=== PATIENT | female | born 2000 | race Caucasian/White ===

== ENCOUNTER 2020-07-10 19:12 | Outpatient (REF) | payer OTHER, SELFPAY ==
--- NOTE | 2020-07-10 | MR_ITS ---
EXAMINATION: MR BRAIN WITHOUT CONTRAST CLINICAL INFORMATION: Concussion. Loss of consciousness. COMPARISON: Head CT from 04/16/2020. TECHNIQUE: MRI of the brain was obtained using routine sequences without contrast. FINDINGS: No focal restricted diffusion is demonstrated to suggest acute or subacute cerebral ischemia. No evidence of acute or chronic hemorrhagic products on heme-sensitive imaging. Normal parenchymal signal characteristics. The ventricles are normal in morphology and size. No abnormal mass effect. No midline shift. Normal appearance of the pituitary gland. No abnormalities of the posterior fossa with normal appearance of the brainstem and cerebellum. The cerebellar tonsils are positioned at the level of foramen magnum. Normal arterial and venous vascular flow voids are present. Normal, homogeneous marrow signal. Mild mucosal thickening of the paranasal sinuses. No signal abnormalities within the mastoids. IMPRESSION: 1. No acute intracranial abnormalities. 2. No MRI abnormalities to correlate with the patient's symptoms.
== END 2020-07-10 19:13 | disposition home or self-care (01) ==
LOC: HO.MRI 19:12
PROVIDERS: PCP Internal Medicine; Visit Provider Internal Medicine
DX: S06.0X0A Concussion without loss of consciousness, initial encounter (principal); X58.XXXA Exposure to other specified factors, initial encounter; Y93.9 Activity, unspecified; Y92.9 Unspecified place or not applicable; Y99.9 Unspecified external cause status
CPT/HCPCS: 70551

== ENCOUNTER 2020-07-13 15:28 | Outpatient (REF) | payer OTHER, SELFPAY ==
[2020-07-13 16:18] LABS: COVID-19 Test Negative (Negative)
== END 2020-07-13 15:29 | disposition home or self-care (01) ==
LOC: HO.LAB 15:28
PROVIDERS: PCP Internal Medicine; Visit Provider Internal Medicine
DX: Z20.828 Contact with and (suspected) exposure to other viral communicable diseases (principal)
CPT/HCPCS: 36415

== ENCOUNTER 2020-07-31 08:48 | Outpatient (REF) | payer OTHER, SELFPAY ==
[2020-07-31 09:48] LABS: MANUAL DIFF FLAG NO
[2020-07-31 09:49] LABS: Basophils Percent Auto 0.3 % (0-2); Eosinophils Absolute Auto 0.1 X10*3/uL (0.0-0.4); Eosinophils Percent Auto 1.6 % (0-4); Hematocrit 41.2 % (37-47); Hemoglobin 13.3 g/dl (12.0-16.0); Imm Gran Abs Auto 0.01 X10*3/uL (0.00-0.03); Imm Gran Pct Auto 0.2 % (0.0-0.4); Lymphocytes Absolute Auto 1.7 X10*3/uL (1.2-4.9); Lymphocytes Percent Auto 26.6 % (20-40); Mean Corpuscular HGB Conc 32.3 g/dl (31.0-35.0); Mean Corpuscular Hemoglobin 28.2 pg (27.0-33.0); Mean Corpuscular Volume 87.3 fL (80-98); Mean Platelet Volume 11.7 fL (9.4-12.3); Monocytes Absolute Auto 0.5 X10*3/uL (0.1-1.2); Monocytes Percent Auto 7.4 % (2-11); Neutrophils Percent Auto 63.9 % (45-73); Platelet Count 197 X10*3/uL (160-400); Red Blood Count 4.72 X10*6/uL (4.20-5.50); Red Cell Distribution Width 12.7 % (11.0-16.0); White Blood Count 6.3 X10*3/uL (4.8-10.8)
[2020-07-31 10:16] LABS: Alanine Aminotransferase 16 U/L (0-31); Albumin Level 4.3 g/dL (3.5-5.0); Alkaline Phosphatase 77 U/L (39-117); Anion Gap 12 (12-20); Aspartate Amino Transferase 21 U/L (5-31); Bilirubin Total 0.2 mg/dL (0.0-1.0); Blood Urea Nitrogen 17 mg/dL (9-16); Carbon Dioxide 25 mmol/L (22-29); Chloride 107 mmol/L (96-108); Cholesterol 155 mg/dL; Estimated Glomerular Filt Rate > 60; Glucose Fasting 89 mg/dL (60-99); HDL Cholesterol 46 mg/dL; Iron 32 mcg/dL (30-160); LDL Cholesterol Calculated 99 mg/dl; Percent Iron Saturation 9 % (15-50); Potassium 4.3 mmol/l (3.3-5.1); Sodium 140 mmol/L (135-145); Total Iron Binding Capacity 346 mcg/dL (228-428); Total Protein 7.4 g/dL (6.5-8.0); Triglycerides 52 mg/dL; Unsaturated Iron Binding 314 ug/dL
[2020-07-31 10:33] LABS: HIV AB/AG Nonreactive (Nonreactive); HIV Num 1 0.08 S/CO (0.00-0.99)
[2020-07-31 10:38] LABS: Ferritin 2 ng/mL (10-122)
== END 2020-07-31 08:49 | disposition home or self-care (01) ==
LOC: HO.LAB 08:48
PROVIDERS: Absent Provider Nurse Practitioner Women's Health; PCP Internal Medicine; Visit Provider Internal Medicine
DX: E66.09 Other obesity due to excess calories (principal); D50.0 Iron deficiency anemia secondary to blood loss (chronic); Z11.3 Encounter for screening for infections with a predominantly sexual mode of transmission
CPT/HCPCS: 36415; 80053; 80061; 82728; 83540; 84443; 85025; 87389

== ENCOUNTER 2021-02-03 13:37 | Outpatient (REF) | payer OTHER, SELFPAY ==
[2021-02-03 14:07] LABS: COVID-19 Test Negative (Negative)
== END 2021-02-03 13:38 | disposition home or self-care (01) ==
LOC: HO.EMPCOV 13:37
PROVIDERS: Visit Provider Internal Medicine
DX: Z20.822 Contact with and (suspected) exposure to COVID-19 (principal)
CPT/HCPCS: 36415; 87635; C9803

== ENCOUNTER 2021-05-29 08:37 | Outpatient (REF) | payer OTHER, SELFPAY ==
[2021-05-29 10:13] LABS: MANUAL DIFF FLAG NO
[2021-05-29 10:14] LABS: Basophils Percent Auto 0.4 % (0-2); Eosinophils Absolute Auto 0.1 X10*3/uL (0.0-0.4); Eosinophils Percent Auto 1.9 % (0-4); Hemoglobin 12.9 g/dl (12.0-16.0); Imm Gran Abs Auto 0.01 X10*3/uL (0.00-0.03); Imm Gran Pct Auto 0.1 % (0.0-0.4); Lymphocytes Absolute Auto 1.9 X10*3/uL (1.2-4.9); Lymphocytes Percent Auto 28.2 % (20-40); Mean Corpuscular HGB Conc 32.3 g/dl (31.0-35.0); Mean Corpuscular Hemoglobin 27.4 pg (27.0-33.0); Mean Corpuscular Volume 84.9 fL (80-98); Mean Platelet Volume 11.8 fL (9.4-12.3); Monocytes Absolute Auto 0.5 X10*3/uL (0.1-1.2); Monocytes Percent Auto 7.6 % (2-11); Neutrophils Absolute Auto 4.2 X10*3/uL (2.0-8.3); Neutrophils Percent Auto 61.8 % (45-73); Platelet Count 221 X10*3/uL (160-400); Red Blood Count 4.71 X10*6/uL (4.20-5.50); Red Cell Distribution Width 13.4 % (11.0-16.0); White Blood Count 6.8 X10*3/uL (4.8-10.8)
[2021-05-29 10:49] LABS: Alanine Aminotransferase 14 U/L (0-31); Albumin Level 4.2 g/dL (3.5-5.0); Alkaline Phosphatase 80 U/L (39-117); Anion Gap 13 (12-20); Aspartate Amino Transferase 17 U/L (5-31); Bilirubin Total 0.4 mg/dL (0.0-1.0); Blood Urea Nitrogen 12 mg/dL (9-16); Calcium 9.4 mg/dL (8.4-10.2); Carbon Dioxide 23 mmol/L (22-29); Chloride 108 mmol/L (96-108); Cholesterol 167 mg/dL; Estimated Glomerular Filt Rate > 60; Glucose Fasting 92 mg/dL (60-99); HDL Cholesterol 49 mg/dL; LDL Cholesterol Calculated 97 mg/dl; Potassium 4.5 mmol/L (3.3-5.1); Sodium 139 mmol/L (135-145); Total Protein 7.5 g/dL (6.5-8.0); Triglycerides 108 mg/dL
[2021-05-30 03:37] LABS: SARS COV2 IgG Negative (Negative)
[2021-06-03 11:30] LABS: Vitamin D 25-OH, D2 <4 ng/mL; Vitamin D 25-OH, D3 19 ng/mL; Vitamin D 25-OH, Total 19 ng/mL (30-100)
== END 2021-05-29 08:38 | disposition home or self-care (01) ==
LOC: HO.LAB 08:37
PROVIDERS: PCP Internal Medicine; Visit Provider Internal Medicine
DX: D64.9 Anemia, unspecified (principal); R07.9 Chest pain, unspecified; E55.9 Vitamin D deficiency, unspecified; Z01.84 Encounter for antibody response examination; Z86.16 Personal history of COVID-19
CPT/HCPCS: 36415; 80053; 80061; 82306; 85025; 86769

== ENCOUNTER 2021-07-01 13:27 | Outpatient (REF) | payer OTHER, SELFPAY ==
[2021-07-01 15:15] LABS: Appearance Urine CLEAR; Color Urine STRAW; Glucose Urine UA NEG (NEG); Leukocyte Esterase Urine 1+ (NEG); Nitrite Urine NEG (NEG); Specific Gravity - Urine <= 1.005 (1.005-1.025); UACC Culture Trigger YES; Urine Blood NEG (NEG); Urine Ketones NEG (NEG); Urine Protein NEG (NEG-TRACE)
[2021-07-01 16:42] LABS: Bacteria Urine 1+ /LPF; RBC Urine 0 /HPF (0); Squamous Epithelial Cell Urine 1+ /LPF
== END 2021-07-01 13:28 | disposition home or self-care (01) ==
LOC: HO.LAB 13:27
PROVIDERS: PCP Internal Medicine; Visit Provider Internal Medicine
DX: R30.0 Dysuria (principal)
CPT/HCPCS: 81001; 81003; 87086

== ENCOUNTER 2021-11-04 08:16 | Outpatient (REF) | payer OTHER, SELFPAY | END 2021-11-04 08:17 | disposition home or self-care (01) | LOC: HO.LNP 08:16 | PROVIDERS: Visit Provider Ophthalmology Glaucoma Specialist | DX: H10.409 Unspecified chronic conjunctivitis, unspecified eye (principal) | CPT/HCPCS: 87070; 87147; 87186; 87205 ==

== ENCOUNTER → 2021-12-14 08:12 | Outpatient (REF) | payer OTHER, SELFPAY ==
--- NOTE | 2021-12-14 08:17 | ECG_ITS ---
Test Reason : CP Blood Pressure : / mmHG Vent. Rate : 099 BPM Atrial Rate : 099 BPM P-R Int : 146 ms QRS Dur : 078 ms QT Int : 346 ms P-R-T Axes : 063 078 052 degrees QTc Int : 444 ms Normal sinus rhythm Normal ECG When compared with ECG of 24-JUL-2016 18:58, No significant change was found Referred By: Rosalie Echevarria Electronically Signed By:DANIEL SHABAZZ MD
[2021-12-14 08:23] LABS: MANUAL DIFF FLAG NO
[2021-12-14 08:33] LABS: Basophils Percent Auto 0.4 % (0-2); Eosinophils Absolute Auto 0.2 X10*3/uL (0.0-0.4); Eosinophils Percent Auto 3.2 % (0-4); Hematocrit 40.2 % (37.0-47.0); Hemoglobin 12.7 g/dl (12.0-16.0); Imm Gran Abs Auto 0.01 X10*3/uL (0.00-0.03); Imm Gran Pct Auto 0.1 % (0.0-0.4); Lymphocytes Absolute Auto 1.8 X10*3/uL (1.2-4.9); Lymphocytes Percent Auto 25.2 % (20-40); Mean Corpuscular HGB Conc 31.6 g/dl (31.0-35.0); Mean Corpuscular Volume 82.2 fL (80.0-98.0); Mean Platelet Volume 11.5 fL (9.4-12.3); Monocytes Absolute Auto 0.6 X10*3/uL (0.1-1.2); Monocytes Percent Auto 8.4 % (2-11); Neutrophils Absolute Auto 4.6 x10*3/uL (2.0-8.3); Neutrophils Percent Auto 62.7 % (45-73); Platelet Count 228 X10*3/uL (160-400); Red Blood Count 4.89 X10*6/uL (4.20-5.50); Red Cell Distribution Width 14.4 % (11.0-16.0); White Blood Count 7.3 X10*3/uL (4.8-10.8)
[2021-12-14 09:07] LABS: Alanine Aminotransferase 20 U/L (0-31); Albumin Level 3.9 g/dL (3.5-5.0); Alkaline Phosphatase 72 U/L (39-117); Anion Gap 11 (12-20); Aspartate Amino Transferase 21 U/L (5-31); Bilirubin Total 0.6 mg/dL (0.0-1.0); Blood Urea Nitrogen 9 mg/dL (9-16); Calcium 9.2 mg/dL (8.4-10.2); Carbon Dioxide 22 mmol/L (22-29); Chloride 110 mmol/L (96-108); Cholesterol 151 mg/dL; Estimated Glomerular Filt Rate > 60; Glucose Fasting 100 mg/dL (60-99); HDL Cholesterol 42 mg/dL; LDL Cholesterol Calculated 85 mg/dl; Sodium 139 mmol/L (135-145); Total Protein 7.1 g/dL (6.5-8.0); Triglycerides 120 mg/dL
[2021-12-14 09:30] LABS: Thyroid Stimulating Hormone 1.25 uIU/mL (0.32-4.0)
[2021-12-18 13:41] LABS: Vitamin D 25-OH, D2 <4 ng/mL; Vitamin D 25-OH, D3 18 ng/mL; Vitamin D 25-OH, Total 18 ng/mL (30-100)
== END ==
LOC: HO.CARD 08:12
PROVIDERS: PCP Internal Medicine; Visit Provider Internal Medicine
DX: Z00.00 Encounter for general adult medical examination without abnormal findings (principal); R07.9 Chest pain, unspecified; D64.9 Anemia, unspecified; E66.9 Obesity, unspecified; E78.5 Hyperlipidemia, unspecified; E55.9 Vitamin D deficiency, unspecified
CPT/HCPCS: 36415; 80053; 80061; 82306; 84443; 85025; 93005

== ENCOUNTER → 2022-01-11 13:03 | Outpatient (BNVA) | payer OTHER, SELFPAY | PROVIDERS: Visit Provider Advanced Practice Midwife | DX: Z32.01 Encounter for pregnancy test, result positive (principal); N92.6 Irregular menstruation, unspecified | CPT/HCPCS: 81025 ==

== ENCOUNTER 2022-01-26 08:18 | Outpatient (REF) | payer OTHER, SELFPAY | END 2022-01-26 08:19 | disposition home or self-care (01) | LOC: HO.LAB 08:18 | PROVIDERS: PCP Internal Medicine; Visit Provider Advanced Practice Midwife | DX: O23.40 Unspecified infection of urinary tract in pregnancy, unspecified trimester (principal); N39.0 Urinary tract infection, site not specified | CPT/HCPCS: 81003; 87086 ==

== ENCOUNTER 2022-01-28 08:50 | Outpatient (REF) | payer OTHER, SELFPAY ==
--- NOTE | ~2022-01-28 | US_ITS ---
EXAMINATION: OBSTETRICAL ULTRASOUND, FIRST TRIMESTER HISTORY: 21-year-old at 9.3 weeks of gestation Low back pain Inability to detect heart tone LMP: 11/23/2021 COMPARISON: None TECHNIQUE: Real time transabdominal imaging with color and M-mode Doppler. FINDINGS: A single, live IUP CRL of 29.7 mm c/w 9.6wks is noted. Heart Rate: 172 beats per minute. Both maternal ovaries are seen and appear normal. GESTATIONAL AGE: 1. GA from LMP: 9.3 wks 2. GA from AUA: 9.6 wks ESTIMATED DATE OF DELIVERY: 1. JERRI from LMP: 08/30/2022 2. JERRI from AUA: 08/27/2022 US/US OB <= 14 weeks fetus IMPRESSION: 1. A single live IUP 2. Size equals dates 3. Normal ovaries Thank you very much for this referral. This note was generated with a voice recognition program. Please excuse any errors which may have been overlooked during my review of this note. Sometimes these errors may affect the content or meaning of a given sentence.
== END 2022-01-28 08:51 | disposition home or self-care (01) ==
LOC: HO.US 08:50
PROVIDERS: Visit Provider Advanced Practice Midwife
DX: O36.80X0 Pregnancy with inconclusive fetal viability, not applicable or unspecified (principal); O26.891 Other specified pregnancy related conditions, first trimester; M54.50 Low back pain, unspecified; O99.211 Obesity complicating pregnancy, first trimester; E66.9 Obesity, unspecified; Z3A.09 9 weeks gestation of pregnancy
CPT/HCPCS: 76801

== ENCOUNTER → 2022-02-15 13:37 | Outpatient (BNVA) | payer OTHER, SELFPAY | PROVIDERS: PCP Internal Medicine; Visit Provider Advanced Practice Midwife | DX: O99.211 Obesity complicating pregnancy, first trimester (principal); E66.9 Obesity, unspecified; Z3A.12 12 weeks gestation of pregnancy | CPT/HCPCS: 99212 ==

== ENCOUNTER 2022-02-18 08:44 | Outpatient (REF) | payer OTHER, SELFPAY ==
--- NOTE | ~2022-02-18 | US_ITS ---
EXAMINATION: OBSTETRICAL ULTRASOUND, FIRST TRIMESTER HISTORY: 21-year-old at the 12.3 weeks of gestation NT screening COMPARISON: 01/28/2022 TECHNIQUE: Real time transabdominal imaging with color and M-mode Doppler. FINDINGS: A single, live IUP CRL of 66.2 mm c/w 13.0wks is noted. Heart Rate: 174 beats per minute. Normal yolk sac seen. NT was 2.3.mm. NB Present. The NT measurement varied between 2.95 and 1.7 mm depending on the position of the neck. The largest measurement was taken with the neck in the extended position. The best measurement was 2.3 mm which is within normal limits. The embryo appears sonographically wnl for this GA. Both maternal ovaries are seen and appear normal. GESTATIONAL AGE: 1. Established GA: 12.3 wks 2. GA from A: 13.0 wks ESTIMATED DATE OF DELIVERY: 1. Established JERRI: 08/30/2022 2. JERRI from [facility]: 08/26/2022 US/US OB 1T nuc measure IMPRESSION: 1. A single live IUP 2. Size equals dates 3. NT of 2.3 mm MFM Consultation: I reviewed the ultrasound findings along with significance of NT measurement. The NT of less than 3mm is generally reassuring. However, the sensitivity for T21 detection is only 60%. I reviewed the availability of serum aneuploidy screening which includes cell-free DNA and placental protein based tests. I discussed the sensitivity, false-positive rate, and other limitations associated with each test. I also reviewed the availability of invasive diagnostic tests that are associated small but definite risk of miscarriage. We also reviewed the differences between screening tests and diagnostic tests. After our discussion, she opted for the First trimester screening that is based on cell-free DNA or non-invasive testing (NIPT). The result will be faxed to your office in approximately 7 days. A follow up at 18 weeks for survey has been scheduled. Thank you very much for this referral. Total time 30 minutes. The time spent was devoted to counseling the patient about the disease and diagnosis, coordinating care including reviewing her records, pertinent lab data and studies, as well as discussing diagnostic evaluation and workup, plan therapeutic interventions and future disposition of care. This includes any additional research needed to obtain further information in formulating the plan of care of this patient. This note was generated with a voice recognition program. Please excuse any errors which may have been overlooked during my review of this note. Sometimes these errors may affect the content or meaning of a given sentence.
== END 2022-02-18 08:45 | disposition home or self-care (01) ==
LOC: HO.US 08:44
PROVIDERS: Visit Provider Advanced Practice Midwife
DX: Z34.91 Encounter for supervision of normal pregnancy, unspecified, first trimester (principal); Z3A.13 13 weeks gestation of pregnancy
CPT/HCPCS: 76813

== ENCOUNTER 2022-02-25 14:14 | Outpatient (REF) | payer OTHER, SELFPAY ==
[2022-02-26 13:52] LABS: BV Int Neg Control Negative (Negative); BV Int Pos Control Positive (Positive)
[2022-02-26 16:55] LABS: CT PCR NOT DETECTED (Not Detect.); NG PCR NOT DETECTED (Not Detect.)
== END 2022-02-25 14:15 | disposition home or self-care (01) ==
LOC: HO.LAB 14:14
PROVIDERS: PCP Internal Medicine; Visit Provider Advanced Practice Midwife
DX: O99.211 Obesity complicating pregnancy, first trimester (principal); E66.9 Obesity, unspecified; O26.891 Other specified pregnancy related conditions, first trimester; L30.9 Dermatitis, unspecified; Z3A.13 13 weeks gestation of pregnancy
CPT/HCPCS: 87480; 87491; 87510; 87591; 87660; 99212

== ENCOUNTER 2022-02-28 16:28 | Outpatient (REF) | payer OTHER, SELFPAY ==
[2022-02-28 17:45] LABS: Hematocrit 36.5 % (37.0-47.0); Hemoglobin 12.1 g/dl (12.0-16.0); Mean Corpuscular HGB Conc 33.2 g/dl (31.0-35.0); Mean Corpuscular Hemoglobin 26.9 pg (27.0-33.0); Mean Corpuscular Volume 81.3 fL (80.0-98.0); Mean Platelet Volume 11.3 fL (9.4-12.3); Platelet Count 212 X10*3/uL (160-400); Red Blood Count 4.49 X10*6/uL (4.20-5.50); Red Cell Distribution Width 14.2 % (11.0-16.0); White Blood Count 10.3 X10*3/uL (4.8-10.8)
[2022-02-28 18:02] LABS: Amphetamine Screen Urine Not Detected (Not Detect); Barbiturates, Urine Not Detected (Not Detect); Benzodiazepines Screen Urine Not Detected (Not Detect); Cannabinoid Screen Urine Not Detected (Not Detect); Cocaine Screen Urine Not Detected (Not Detect); Fentanyl, urine Not Detected (Not Detect); Opiate Screen Urine Not Detected (Not Detect); Phencyclidine Screen Urine Not Detected (Not Detect)
[2022-02-28 18:02] LABS: Alanine Aminotransferase 20 U/L (0-31); Aspartate Amino Transferase 17 U/L (5-31); Blood Urea Nitrogen 10 mg/dL (9-16); Estimated Glomerular Filt Rate > 60; Uric Acid 3.6 mg/dL (2.4-5.7)
[2022-02-28 18:08] LABS: Creatinine Urine 48.56 mg/dL; Total Protein Urine Random < 7 mg/dL (<12)
[2022-02-28 18:48] LABS: Syphilis Screen Nonreactive (Nonreactive)
[2022-03-01 04:55] LABS: HBsAGNum1 0.25 S/CO (0.00-0.99); HIV AB/AG Nonreactive (Nonreactive); HIV Num 1 0.08 S/CO (0.00-0.99); Hepatitis B Surface Antigen Negative (Negative); ~HepC Num1 0.08 S/CO (0.00-0.79); ~Hepatitis C Antibody Nonreactive (Nonreactive)
[2022-03-01 17:22] LABS: Rubella IgG Antibody 1.51 Index
== END 2022-02-28 16:29 | disposition home or self-care (01) ==
LOC: HO.LAB 16:28
PROVIDERS: PCP Internal Medicine; Visit Provider Advanced Practice Midwife
DX: Z11.4 Encounter for screening for human immunodeficiency virus [HIV] (principal); O99.210 Obesity complicating pregnancy, unspecified trimester; E66.9 Obesity, unspecified
CPT/HCPCS: 80307; 82565; 84156; 84450; 84460; 84520; 84550; 85027; 86762; 86780; 86787; 86803; 86850; 86900; 86901; 87086; 87340; 87389

== ENCOUNTER 2022-03-14 13:15 | Emergency (ER) | payer OTHER, SELFPAY ==
--- NOTE | ~2022-03-14 | XR_ITS ---
EXAMINATION: PORTABLE CHEST 1 VIEW CLINICAL INFORMATION: sob/chest pain 16 week . COMPARISON: No recent pertinent prior studies are available for comparison. TECHNIQUE: Portable frontal view of the chest was obtained. FINDINGS: The lungs are well expanded. No focal infiltrate, effusion, edema, or pneumothorax. Cardiac and mediastinal silhouettes are within normal limits for technique. No acute bony abnormality seen. XR/XR chest 1V IMPRESSION: No evidence of acute disease.
--- NOTE | ~2022-03-14 | NM_ITS ---
EXAMINATION: PULMONARY PERFUSION STUDY CLINICAL INFORMATION: Shortness of breath and chest pain, elevated d-dimer. The patient is 16 weeks and informed written consent was obtained from the patient prior to performing this procedure. COMPARISON: No previous lung scan is available for comparison. TECHNIQUE: Following the intravenous injection of 0.5 mCi Tc-99m MAA, the lungs were imaged in the anterior and posterior, left and right lateral and JAPANESE, CABRERA, LPO, and RPO projections using a gamma scintillation camera. This markedly reduced radiopharmaceutical dose was used because of the patient's state. FINDINGS: No segmental perfusion defects are present. There is homogeneous distribution of activity bilaterally. There are no focal anatomic appearing perfusion defects present. NM/NM pul perfusion IMPRESSION: Normal radionuclide lung perfusion scan.
[2022-03-14 13:31] VITALS: BP 162/87; PULSE 88; RESP 20; TEMP 36.8; O2SAT 99; BMI 36.6
[2022-03-14 14:10] LABS: COVID-19 Test Negative (Negative); IDNOW Serial# 16C4AD1C
--- NOTE | 2022-03-14 14:40 | ECG_ITS ---
Test Reason : CHEST PRESSURE Blood Pressure : / mmHG Vent. Rate : 087 BPM Atrial Rate : 087 BPM P-R Int : 142 ms QRS Dur : 084 ms QT Int : 354 ms P-R-T Axes : 059 064 050 degrees QTc Int : 425 ms Normal sinus rhythm Normal ECG When compared with ECG of 14-DEC-2021 08:32, No significant change was found Referred By: Vera Iglesias Electronically Signed By:BRANDI RIOJAS
[2022-03-14 14:50] VITALS: BP 115/72; PULSE 91; RESP 16; O2SAT 99
[2022-03-14 15:01] LABS: MANUAL DIFF FLAG NO
[2022-03-14 15:07] LABS: Basophils Percent Auto 0.4 % (0-2); Eosinophils Absolute Auto 0.3 X10*3/uL (0.0-0.4); Hematocrit 37.3 % (37.0-47.0); Hemoglobin 12.4 g/dl (12.0-16.0); Imm Gran Abs Auto 0.04 X10*3/uL (0.00-0.03); Imm Gran Pct Auto 0.4 % (0.0-0.4); Lymphocytes Absolute Auto 1.5 X10*3/uL (1.2-4.9); Lymphocytes Percent Auto 13.2 % (20-40); Mean Corpuscular HGB Conc 33.2 g/dl (31.0-35.0); Mean Corpuscular Volume 81.3 fL (80.0-98.0); Mean Platelet Volume 11.3 fL (9.4-12.3); Monocytes Absolute Auto 0.9 X10*3/uL (0.1-1.2); Monocytes Percent Auto 8.3 % (2-11); Neutrophils Absolute Auto 8.4 x10*3/uL (2.0-8.3); Neutrophils Percent Auto 74.7 % (45-73); Platelet Count 218 X10*3/uL (160-400); Prothrombin Time 11.7 SEC (9.9-13.0); Red Blood Count 4.59 X10*6/uL (4.20-5.50); Red Cell Distribution Width 14.4 % (11.0-16.0); White Blood Count 11.3 X10*3/uL (4.8-10.8)
[2022-03-14 15:09] LABS: D Dimer High Sensitivity 735 NG/ML
[2022-03-14 15:30] LABS: Alanine Aminotransferase 40 U/L (0-31); Albumin Level 3.5 g/dL (3.5-5.0); Alkaline Phosphatase 65 U/L (39-117); Anion Gap 12 (12-20); Aspartate Amino Transferase 23 U/L (5-31); Bilirubin Total 0.2 mg/dL (0.0-1.0); Blood Urea Nitrogen 7 mg/dL (9-16); Calcium 8.9 mg/dL (8.4-10.2); Carbon Dioxide 21 mmol/L (22-29); Chloride 108 mmol/L (96-108); Creatinine Clr Calc Pharmacy 148.8; Estimated Glomerular Filt Rate > 60; Glucose Random 88 mg/dL (60-115); Potassium 3.9 mmol/L (3.3-5.1); Sodium 137 mmol/L (135-145); Total Protein 6.6 g/dL (6.5-8.0)
[2022-03-14 15:34] LABS: Troponin-I High Sensitivity < 3.5 ng/L (<3.5-17.0)
--- NOTE | 2022-03-14 16:08 | ED.GENADULT ---
HPI - General Adult General Chief complaint: General Medical Stated complaint: INTERMITTENT CHEST PAIN Time Seen by Provider: 03/14/22 14:29 Related Data Previous Rx's Medication Instructions Recorded prenat.vits,marleny,gpp-[id number] 1 tab PO DAILY #100 tab 01/11/22 aspirin 81 mg tablet,delayed 162 mg PO DAILY #300 tab 02/25/22 release (Adult Aspirin Regimen) Allergies Allergy/AdvReac Type Severity Reaction Status Date / Time Sulfa (Sulfonamide Allergy Intermediate rash Verified 02/25/22 14:47 Antibiotics) FOR[facility]LY [facility], [facility] Past Medical History Medical History (Updated 02/25/22 @ 16:34 by Beatriz Clifford CNM) Anemia Chest pain Constipation by delayed colonic transit COVID-19 Encounter for physical examination Eye abnormality Lower back pain Migraine Missed period Nausea Obesity (BMI 35.0-39.9 without comorbidity) Surgical History (Updated 02/15/22 @ 15:02 by Tanya Carlton LPN) Lynn teeth removed Family History Family History Father Hypertension Mother History of pre-eclampsia Maternal Grandmother Diabetes Paternal Grandmother Hypertension Brother No problems noted. Social History Social History (Updated 02/15/22 @ 14:42 by Tanya Carlton LPN) Household Members: Significant Other and Family Housing: House Are you a primary critical care educator to a significant other at home: No Do you presently have visiting nurse or other home services: No Alcohol intake: never Patient Tobacco Use Status: Never used Tobacco e-Cigarette/Vaping Use: Never Used Second Hand Smoke Exposure: No Special mercy needs: No Agree to transfusion: Yes Advance Directives: No Advance Directives Information Provided: No service: No Current occupational status: employed Current occupational exposures/hazards: No Physical Exam ED Vital Signs: Vital Signs - 24 hr 03/14/22 13:31 03/14/22 14:50 Temperature 98.3 F Pulse Rate 88 91 Respiratory Rate 20 16 Blood Pressure 162/87 H 115/72 Pulse Oximetry 99 99 BMI result Body Mass Index 36.6 Medical Decision Making Lab Data Result diagrams: 03/14/22 14:54 03/14/22 14:54 Labs: Lab Results 03/14/22 03/14/22 03/14/22 Range/Units 13:33 14:54 14:54 WBC 11.3 H (4.8-10.8) X10*3/uL RBC 4.59 (4.20-5.50) X10*6/uL Hgb 12.4 (12.0-16.0) g/dl Hct 37.3 (37.0-47.0) % MCV 81.3 (80.0-98.0) fL MCH 27.0 (27.0-33.0) pg MCHC 33.2 (31.0-35.0) g/dl RDW 14.4 (11.0-16.0) % Plt Count 218 (160-400) X10*3/uL MPV 11.3 (9.4-12.3) fL Immature Gran % (Auto) 0.4 (0.0-0.4) % Neut % (Auto) 74.7 H (45-73) % Lymph % (Auto) 13.2 L (20-40) % Gillespie % (Auto) 8.3 (2-11) % Eos % (Auto) 3.0 (0-4) % Baso % (Auto) 0.4 (0-2) % Lymph # (Auto) 1.5 (1.2-4.9) X10*3/uL Gillespie # (Auto) 0.9 (0.1-1.2) X10*3/uL Eos # (Auto) 0.3 (0.0-0.4) X10*3/uL Baso # (Auto) 0.0 (0.0-0.2) X10*3/uL Abs Immat Gran (auto) 0.04 H (0.00-0.03) X10*3/uL Absolute Neuts (auto) 8.4 H (2.0-8.3) x10*3/uL Absolute Nucleated RBC 0.000 (0.0-0.012) X10*3/uL Nucleated RBC % (auto) 0.0 (0.0-0.2) /100WBC PT 11.7 (9.9-13.0) SEC INR 1.0 (0.9-1.1) D-Dimer High Sensitivty 735 NG/ML Sodium (135-145) mmol/L Potassium (3.3-5.1) mmol/L Chloride (96-108) mmol/L Carbon Dioxide (22-29) mmol/L Anion Gap (12-20) BUN (9-16) mg/dL Creatinine (0.5-1.4) mg/dL Estim Creat Clear Calc Estimated GFR Random Glucose (60-115) mg/dL Calcium (8.4-10.2) mg/dL Magnesium (1.6-2.6) mg/dL Total Bilirubin (0.0-1.0) mg/dL AST (5-31) U/L ALT (0-31) U/L Alkaline Phosphatase (39-117) U/L Troponin I High Sens (<3.5-17.0) ng/L Total Protein (6.5-8.0) g/dL Albumin (3.5-5.0) g/dL COVID-19 ([facility]) Negative (Negative) COVID-19 Clin Com See Note 03/14/22 03/14/22 Range/Units 14:54 14:54 WBC (4.8-10.8) X10*3/uL RBC (4.20-5.50) X10*6/uL Hgb (12.0-16.0) g/dl Hct (37.0-47.0) % MCV (80.0-98.0) fL MCH (27.0-33.0) pg MCHC (31.0-35.0) g/dl RDW (11.0-16.0) % Plt Count (160-400) X10*3/uL MPV (9.4-12.3) fL Immature Gran % (Auto) (0.0-0.4) % Neut % (Auto) (45-73) % Lymph % (Auto) (20-40) % Gillespie % (Auto) (2-11) % Eos % (Auto) (0-4) % Baso % (Auto) (0-2) % Lymph # (Auto) (1.2-4.9) X10*3/uL Gillespie # (Auto) (0.1-1.2) X10*3/uL Eos # (Auto) (0.0-0.4) X10*3/uL Baso # (Auto) (0.0-0.2) X10*3/uL Abs Immat Gran (auto) (0.00-0.03) X10*3/uL Absolute Neuts (auto) (2.0-8.3) x10*3/uL Absolute Nucleated RBC (0.0-0.012) X10*3/uL Nucleated RBC % (auto) (0.0-0.2) /100WBC PT (9.9-13.0) SEC INR (0.9-1.1) D-Dimer High Sensitivty NG/ML Sodium 137 (135-145) mmol/L Potassium 3.9 (3.3-5.1) mmol/L Chloride 108 (96-108) mmol/L Carbon Dioxide 21 L (22-29) mmol/L Anion Gap 12 (12-20) BUN 7 L (9-16) mg/dL Creatinine 0.64 (0.5-1.4) mg/dL Estim Creat Clear Calc 148.8 Estimated GFR > 60 Random Glucose 88 (60-115) mg/dL Calcium 8.9 (8.4-10.2) mg/dL Magnesium 2.0 (1.6-2.6) mg/dL Total Bilirubin 0.2 (0.0-1.0) mg/dL AST 23 (5-31) U/L ALT 40 H (0-31) U/L Alkaline Phosphatase 65 (39-117) U/L Troponin I High Sens < 3.5 (<3.5-17.0) ng/L Total Protein 6.6 (6.5-8.0) g/dL Albumin 3.5 (3.5-5.0) g/dL COVID-19 ([facility]) (Negative) COVID-19 Clin Com Discharge Plan Discharge Prescriptions: No Action prenat.vits,marleny,[id number] Tablet 1 tab PO DAILY Qty: 100 3RF aspirin [Adult Aspirin Regimen] 81 mg tablet,delayed release (DR/EC) 162 mg PO DAILY Qty: 300 1RF
--- NOTE | 2022-03-14 16:44 | ED_ITS ---
HPI - Chest Pain General Chief Complaint: General Medical Stated Complaint: INTERMITTENT CHEST PAIN Time Seen by Provider: 03/14/22 14:29 Source: patient and family ( mother at bedside) Mode of arrival: ambulatory Limitations: no limitations History of Present Illness HPI narrative: 21-year-old female with a past medical history of anemia, COVID-19, constipation, migraine headaches, obesity who is currently [id number] 16 weeks being followed by Beatriz GoldsteinBrien here [facility] due date of 08/30/22 presenting to the ED with complaints of midsternal chest pain radiating to her left shoulder with left hand numbness/ tingling sensation/shortness of breath for the past 2-3 days. although she reports that her was recently positive for COVID and she wants to rule it out as well. Although she denies a cough. Reports that she does not have any fevers, chills, dizziness, headaches, nausea/ vomiting, changes in vision, palpitations, paresthesias, lower extremity edema or calf tenderness, history of DVT or PE, recent immobilization or surgery, history of cancer, Abdominal pain, back pain, flank pain, dysuria, hematuria, abnormal vaginal discharge, vaginal bleeding or any other symptoms complaints or concerns at this time. MD complaint: chest pain and chest discomfort Pertinent past history: other ( Currently 16 weeks ) Onset (ago): day(s) ( past 2-3 days) Timing of current episode: constant and still present Prior episodes: No Onset: other ( cannot recall) Pain location: substernal Pain radiation: left arm Severity: moderate Quality: aching and sharp Relieving factors: nothing Exacerbating factors: exertion and inspiration Treatment prior to arrival: none Risk Factors Coronary artery disease risk factors: none Thoracic aortic dissection risk factors: none Pulmonary embolism risk factors: Related Data Previous Rx's Medication Instructions Recorded prenat.vits,marleny,[id number] 1 tab PO DAILY #100 tab 01/11/22 aspirin 81 mg tablet,delayed 162 mg PO DAILY #300 tab 02/25/22 release (Adult Aspirin Regimen) acetaminophen 500 mg tablet 1,000 mg PO QID PRN #14 tab 03/14/22 (Tylenol Extra Strength) Allergies Allergy/AdvReac Type Severity Reaction Status Date / Time Sulfa (Sulfonamide Allergy Intermediate rash Verified 02/25/22 14:47 Antibiotics) Review of Systems Review of Systems: Constitutional : No Weight loss, No Fever, No Chills, No Night Sweats, No Fatigue, No Malaise ENT/Mouth : No Hearing loss, No Ear Pain, No Nasal Congestion, No Sinus Pain, No Hoarseness, No sore throat, No Rhinorrhea, No Swallowing Difficulty Eyes: No Eye Pain, No Swelling, No Redness, No Foreign Body, No Discharge, No Vision Changes Cardiovascular : +Chest Pain, + SOB, + Dyspnea on Exertion, No Orthopnea, No Edema, No Palpitations Respiratory : No Cough, No Sputum, No Wheezing, No Smoke Exposure, No Dyspnea Gastrointestinal : No Nausea, No Vomiting, No Diarrhea, No Constipation, No abdominal Pain, No Hematochezia, No Melena Genitourinary : no irregular bleeding, No Dysuria, No Urinary Frequency, No Hematuria, No Urinary Incontinence, No Urgency, No Flank Pain, No Urinary Flow Changes, No Hesitancy Musculoskeletal : No joint pain, No Myalgias, No Joint Swelling Skin : No Skin Lesions, No rash Neuro : No Weakness, No Numbness, No Paresthesias, No Loss of Consciousness, No Dizziness, No Headache Psych : No Anxiety/Panic, No Depression, No SI/HI/AH/VH, No Social Issues, Heme/Lymph: No Bruising, No Bleeding,No Lymphadenopathy Endocrine : No Polyuria, No Polydipsia, No Temperature Intolerance Yes all other systems are reviewed and are negative [facility] Past Medical History Attestation statement: The following information was validated with the patient. Source: old records reviewed, obtained from family and nursing notes reviewed Medical History Anemia Chest pain Constipation by delayed colonic transit COVID-19 Encounter for physical examination Eye abnormality Lower back pain Migraine Missed period Nausea Obesity (BMI 35.0-39.9 without comorbidity) Surgical History [place] teeth removed Family History Family History Father Hypertension Mother History of pre-eclampsia Maternal Grandmother Diabetes Paternal Grandmother Hypertension Brother No problems noted. Social History Social History Household Members: Significant Other and Family Housing: House Are you a primary career based intervention coordinator to a significant other at home: No Do you presently have visiting nurse or other home services: No Alcohol intake: never Patient Tobacco Use Status: Never used Tobacco e-Cigarette/Vaping Use: Never Used Second Hand Smoke Exposure: No Special mercy needs: No Agree to transfusion: Yes Advance Directives: No Advance Directives Information Provided: No service: No Current occupational status: employed Current occupational exposures/hazards: No Physical Exam Vital Signs: Vital Signs: Last Vital Signs Temp 98.3 F 03/14/22 13:31 Pulse 91 03/14/22 14:50 Resp 16 03/14/22 14:50 BP 115/72 03/14/22 14:50 Pulse Ox 99 03/14/22 14:50 BMI result Body Mass Index 36.6 vital signs have been reviewed as normal and appeared to be correct. Blood pressure 162/87. Heart rate normal. Respiration rate normal. Temperature normal. Oxygen saturation normal. Appearance: Alert. Oriented X3. No acute distress. Head: Normal external exam. Normocephalic. Atraumatic. Eyes: PERRLA. EOMI. Conjunctiva and sclera normal. Eyelids normal. ENT: EAC normal. TM's Normal. Pharynx normal. Uvula midline. Moist mucous membranes. No lesions/ulcerations or masses noted on the tongue. Normal voice. No trismus noted. No drooling noted. No muffled voice noted. Neck: Normal inspection. Neck supple. FROM. No adenopathy. Thyroid Normal. No tracheal deviation noted. No crepitus is noted. No meningeal signs. No neck mass noted. No signs of trauma noted. CVS: Normal heart rate and rhythm. Heart sound normal. Pulses normal throughout. No murmurs/rales/gallops. Respiratory: No respiratory distress. Painless inspiration. Breath sounds normal. No wheezes/rales/rhonchi noted. Chest nontender. No crepitus is noted. No signs of trauma noted. No accessory muscle usage noted or decreased air movement noted. No signs of trauma. Abdomen: Soft and nontender. Bowel sounds normal in all 4 quadrants. No distention noted. No organomegaly noted. No visible injury noted. Back: No CVA tenderness. Full range of motion noted. Nontender. No signs of trauma. Patient neuro intact bilaterally and distally on all 4 extremities. Patient's reflexes intact bilaterally and distally on all 4 extremities. No rashes/lesion/induration/fluctuance or signs of infection noted. Skin: Skin warm and dry. Normal skin color. Normal skin turgor. No rashes/lesions/lacerations noted. Extremities: No lower extremity edema. No calf tenderness is noted. Extremities exhibit normal range of motion and nontender. Neuro: Oriented X 3. No motor deficit. No sensory deficit. Reflexes normal. Normal steady gait. No focal neuro deficits noted. CN's II-XII intact bilaterally? Vascular: + radial pulses/+ 2 distal pedal pulses/+2 dorsalis pedis b/l. Normal cap refill. No cyanosis noted to upper extremity nails and lower extremity toes nails. Course Course Course Narrative: 14:40pm - 21-year-old female with a past medical history of anemia, COVID-19, constipation, migraine headaches, obesity who is currently [id number] 16 weeks being followed by Beatriz Clifford here at [facility] due date of 08/30/22 presenting to the ED with complaints of midsternal chest pain radiating to her left shoulder with left hand numbness/ tingling sensation/shortness of breath for the past 2-3 days. Plan: will obtain labs, EKG and D-dimer and re-evaluate. Patient was negative for COVID. Reevaluation(s) Reevaluation #1: - white blood cell count 01177. carbon dioxide 21. BUN 7. Otherwise all other labs within normal limits. Negative troponin. Negative for COVID. Chest x-ray within normal limits. Patient was explained V/Q scan risk and she is accepted the risk of the V/Q scan and V/Q scan within normal limits no evidence of a PE. Patient most likely anxiety versus atypical chest pain. Will DC home with instructions to follow-up with PCP/OBGYN and to return if any new or worsening symptoms. Patient understands agrees with this plan. Time: 18:27 [facility] - Chest Pain Medical Records Data Attestation: I reviewed the patient's medical records. Lab Data Attestation: I reviewed the patient's lab results. Result diagrams: 03/14/22 14:54 03/14/22 14:54 Labs: Lab Results 06/03/3003/14/22 03/14/22 Range/Units 13:33 14:54 14:54 WBC 11.3 H (4.8-10.8) X10*3/uL RBC 4.59 (4.20-5.50) X10*6/uL Hgb 12.4 (12.0-16.0) g/dl Hct 37.3 (37.0-47.0) % MCV 81.3 (80.0-98.0) fL MCH 27.0 (27.0-33.0) pg MCHC 33.2 (31.0-35.0) g/dl RDW 14.4 (11.0-16.0) % Plt Count 218 (160-400) X10*3/uL MPV 11.3 (9.4-12.3) fL Immature Gran % (Auto) 0.4 (0.0-0.4) % Neut % (Auto) 74.7 H (45-73) % Lymph % (Auto) 13.2 L (20-40) % [place] % (Auto) 8.3 (2-11) % Eos % (Auto) 3.0 (0-4) % Baso % (Auto) 0.4 (0-2) % Lymph # (Auto) 1.5 (1.2-4.9) X10*3/uL [place] # (Auto) 0.9 (0.1-1.2) X10*3/uL Eos # (Auto) 0.3 (0.0-0.4) X10*3/uL Baso # (Auto) 0.0 (0.0-0.2) X10*3/uL Abs Immat Gran (auto) 0.04 H (0.00-0.03) X10*3/uL Absolute Neuts (auto) 8.4 H (2.0-8.3) x10*3/uL Absolute Nucleated RBC 0.000 (0.0-0.012) X10*3/uL Nucleated RBC % (auto) 0.0 (0.0-0.2) /100WBC PT 11.7 (9.9-13.0) SEC INR 1.0 (0.9-1.1) D-Dimer High Sensitivty 735 NG/ML Sodium (135-145) mmol/L Potassium (3.3-5.1) mmol/L Chloride (96-108) mmol/L Carbon Dioxide (22-29) mmol/L Anion Gap (12-20) BUN (9-16) mg/dL Creatinine (0.5-1.4) mg/dL Estim Creat Clear Calc Estimated GFR Random Glucose (60-115) mg/dL Calcium (8.4-10.2) mg/dL Magnesium (1.6-2.6) mg/dL Total Bilirubin (0.0-1.0) mg/dL AST (5-31) U/L ALT (0-31) U/L Alkaline Phosphatase (39-117) U/L Troponin I High Sens (<3.5-17.0) ng/L Total Protein (6.5-8.0) g/dL Albumin (3.5-5.0) g/dL COVID-19 ([facility]) Negative (Negative) COVID-19 Clin Com See Note 03/14/22 03/14/22 Range/Units 14:54 14:54 WBC (4.8-10.8) X10*3/uL RBC (4.20-5.50) X10*6/uL Hgb (12.0-16.0) g/dl Hct (37.0-47.0) % MCV (80.0-98.0) fL MCH (27.0-33.0) pg MCHC (31.0-35.0) g/dl RDW (11.0-16.0) % Plt Count (160-400) X10*3/uL MPV (9.4-12.3) fL Immature Gran % (Auto) (0.0-0.4) % Neut % (Auto) (45-73) % Lymph % (Auto) (20-40) % [place] % (Auto) (2-11) % Eos % (Auto) (0-4) % Baso % (Auto) (0-2) % Lymph # (Auto) (1.2-4.9) X10*3/uL [place] # (Auto) (0.1-1.2) X10*3/uL Eos # (Auto) (0.0-0.4) X10*3/uL Baso # (Auto) (0.0-0.2) X10*3/uL Abs Immat Gran (auto) (0.00-0.03) X10*3/uL Absolute Neuts (auto) (2.0-8.3) x10*3/uL Absolute Nucleated RBC (0.0-0.012) X10*3/uL Nucleated RBC % (auto) (0.0-0.2) /100WBC PT (9.9-13.0) SEC INR (0.9-1.1) D-Dimer High Sensitivty NG/ML Sodium 137 (135-145) mmol/L Potassium 3.9 (3.3-5.1) mmol/L Chloride 108 (96-108) mmol/L Carbon Dioxide 21 L (22-29) mmol/L Anion Gap 12 (12-20) BUN 7 L (9-16) mg/dL Creatinine 0.64 (0.5-1.4) mg/dL Estim Creat Clear Calc 148.8 Estimated GFR > 60 Random Glucose 88 (60-115) mg/dL Calcium 8.9 (8.4-10.2) mg/dL Magnesium 2.0 (1.6-2.6) mg/dL Total Bilirubin 0.2 (0.0-1.0) mg/dL AST 23 (5-31) U/L ALT 40 H (0-31) U/L Alkaline Phosphatase 65 (39-117) U/L Troponin I High Sens < 3.5 (<3.5-17.0) ng/L Total Protein 6.6 (6.5-8.0) g/dL Albumin 3.5 (3.5-5.0) g/dL COVID-19 ([facility]) (Negative) COVID-19 Clin Com Imaging Data Chest x-ray: Attestation: I personally reviewed and interpreted this imaging study as follows: Radiologist's impression: FINDINGS: The lungs are well expanded. No focal infiltrate, effusion, edema, or pneumothorax. Cardiac and mediastinal silhouettes are within normal limits for technique. No acute bony abnormality seen. XR/XR chest 1V IMPRESSION: No evidence of acute disease. ventilation/perfusion scan: Attestation: I personally reviewed and interpreted this imaging study as follows: Radiologist's impression: FINDINGS: No segmental perfusion defects are present. There is homogeneous distribution of activity bilaterally. There are no focal anatomic appearing perfusion defects present. NM/NM pul perfusion IMPRESSION: Normal radionuclide lung perfusion scan. ECG Data ECG #1: Attestation: I personally reviewed and interpreted this ECG as follows: ECG interpretation date: 03/14/22 ECG interpretation time: 14:40 Prior ECG tracings: available for review Interpretation: Normal sinus rhythm with ventricular rate of 87 with a normal UT interval normal QRS duration normal QT/QTC interval. No acute ischemic change are noted. Similar compared to prior EKG 12/14/2021 Critical Care Time Critical Care Time Critical Care Time: Yes Total Critical Care Time: 60 Attestation: I personally attest to this time spent taking care of the patient Discharge Plan Discharge Clinical Impression: Atypical chest pain Patient Disposition: Home, Self-Care Instructions: Noncardiac Chest Pain (ED) Prescriptions: New acetaminophen [Tylenol Extra Strength] 500 mg tablet 1,000 mg PO QID PRN (Reason: fever or pain) Qty: 14 0RF No Action prenat.vits,marleny,[id number] Tablet 1 tab PO DAILY Qty: 100 3RF aspirin [Adult Aspirin Regimen] 81 mg tablet,delayed release (DR/EC) 162 mg PO DAILY Qty: 300 1RF Referrals: Rosalie Aceves MD [Primary Care Provider] - 2 days Stand Alone Forms: Work/School Release
[2022-03-14 18:56] LABS: HCG Quantitative 13071 mIU/mL
== END 2022-03-14 18:43 | disposition home or self-care (01) ==
PROVIDERS: Physician Assistant Medical; Emergency Provider Emergency Medicine; PCP Internal Medicine
DX: O26.892 Other specified pregnancy related conditions, second trimester (principal); R07.89 Other chest pain; Z3A.16 16 weeks gestation of pregnancy; Z20.822 Contact with and (suspected) exposure to COVID-19
CPT/HCPCS: 36415; 71045; 78580; 80053; 83735; 84484; 84702; 85025; 85379; 85610; 87635; 93005; 99284; A9540

== ENCOUNTER 2022-03-19 09:20 | Outpatient (REF) | payer OTHER, SELFPAY ==
[2022-03-19 11:23] LABS: Glucose 1 Hour PP 50gm Dose 118 mg/dL (60-140)
== END 2022-03-19 09:21 | disposition home or self-care (01) ==
LOC: HO.LAB 09:20
PROVIDERS: PCP Internal Medicine; Visit Provider Advanced Practice Midwife
DX: Z32.01 Encounter for pregnancy test, result positive (principal)
CPT/HCPCS: 36415

== ENCOUNTER 2022-04-01 08:43 | Outpatient (REF) | payer OTHER, SELFPAY ==
--- NOTE | ~2022-04-01 | US_ITS ---
EXAMINATION: US OBSTETRICAL CLINICAL INFORMATION: 21-year-old at 18.3 weeks of gestation Screening for anomaly COMPARISON: 03/14/2022 TECHNIQUE: Real-time transabdominal ultrasound was performed using C1-5 megahertz transducer. FINDINGS: A single, active, fetus is seen in breech presentation. The placenta is posterior without previa, and the amniotic fluid volume is wnl. MEASUREMENTS: 1. Biparietal Diameter: 4.0 cm; 18.1 wks 2. Occipital Frontal Diameter: 6.0 cm 3. Head Circumference: 16.1 cm; 19.0 wks 4. Abdominal Circumference: 13.9 cm; 19.3 wks 5. Femur Length: 2.6 cm; 18.0 wks 6. Humerus Length: 2.5 cm; 18.0 wks 7. Tibia Length: 2.2 cm; 18.0 wks 8. Ulna Length: 2.3 cm; 18.1 wks 9. Lateral ventricle: 0.6 cm 10. Cerebellum: 1.8 cm; 19.1 wks 11. Cisterna Magna: 0.3 cm 12. Nuchal Fold: 4.7 mm 13. Heart Rate: 163 beats per minute Rt ovary: normal Lt ovary: normal Cervical length 3.6 cm on T/A. GESTATIONAL AGE: 1. Established GA: 18.3 wks 2. GA from [facility]: 18.5 wks ESTIMATED DATE OF DELIVERY: 1. Established JERRI: 08/30/2022 2. JERRI from [facility]: 08/28/2022 ANATOMY: The visualized anatomy includes but not limited to: 1. Cranium: Normal 2. Intracranial anatomy: cavum septum pellucidi, lateral ventricles, choroid plexus, cerebellum, posterior fossa, third and fourth ventricles. 3. face: orbits, lip/palate, profile, nasal bone 4. Heart: four-chamber view of the heart, ventricular septum, foramen ovale, pulmonary vein, left and right outflow tracts, three-vessel view, 3 vessel trachea view, aortic and ductal arches, situs.. 5. Diaphragm: Normal 6. Abdominal wall: Normal 7. Cord Insertion: Normal 8. Spine: Cervical, thoracic, lumbar, sacral. 9. Stomach: Normal size and shape 10. Right Kidney: Normal 11. Left Kidney: Normal 12. 3 vessel cord: Normal 13. Upper extremity: Open hands, fifth digit. 14. Lower extremity: Tibia, fibula, bilateral feet. 15. Bladder: Normal 16. Genitalia: Male, patient aware US/US OB /maternal detail IMPRESSION: 1. Single, living, intrauterine with appropriate biometry. 2. Normal survey DISCUSSION: I reviewed today's ultrasound findings. We discussed the limitations of ultrasound in diagnosing aneuploidy and other congenital abnormalities. I reviewed the differences between screening test and diagnostic test. Amniocentesis was discussed and declined. She was informed that the baseline incidence of congenital abnormalities is approximately 3-5%. Not all these conditions are diagnosable in utero. RECOMMENDATIONS: 1. Follow-up when necessary Thank you for allowing me to participate in her care. Total time 30 minutes. The time spent was devoted to counseling the patient about the disease and diagnosis, coordinating care including reviewing her records, pertinent lab data and studies, as well as discussing diagnostic evaluation and workup, plan therapeutic interventions and future disposition of care. This includes any additional research needed to obtain further information in formulating the plan of care of this patient. This note was generated with a voice recognition program. Please excuse any errors which may have been overlooked during my review of this note. Sometimes these errors may affect the content or meaning of a given sentence.
== END 2022-04-01 08:44 | disposition home or self-care (01) ==
LOC: HO.US 08:43
PROVIDERS: Visit Provider Advanced Practice Midwife
DX: Z36.3 Encounter for antenatal screening for malformations (principal); O99.212 Obesity complicating pregnancy, second trimester; E66.9 Obesity, unspecified; O26.892 Other specified pregnancy related conditions, second trimester; L30.9 Dermatitis, unspecified; Z3A.18 18 weeks gestation of pregnancy
CPT/HCPCS: 76811; 99212

== ENCOUNTER → 2022-04-29 08:43 | Outpatient (BNVA) | payer OTHER, SELFPAY | PROVIDERS: Visit Provider Advanced Practice Midwife | DX: Z34.92 Encounter for supervision of normal pregnancy, unspecified, second trimester (principal); Z3A.22 22 weeks gestation of pregnancy | CPT/HCPCS: 81003; 99212 ==

== ENCOUNTER → 2022-05-24 13:09 | Outpatient (BNVA) | payer OTHER, SELFPAY | PROVIDERS: PCP Internal Medicine; Visit Provider Advanced Practice Midwife | DX: O26.892 Other specified pregnancy related conditions, second trimester (principal); L30.9 Dermatitis, unspecified; Z3A.26 26 weeks gestation of pregnancy | CPT/HCPCS: 99212 ==

== ENCOUNTER 2022-06-10 10:10 | Outpatient (REF) | payer OTHER, SELFPAY ==
[2022-06-10 12:02] LABS: Hemoglobin 12.1 g/dl (12.0-16.0); Mean Corpuscular HGB Conc 33.6 g/dl (31.0-35.0); Mean Corpuscular Hemoglobin 28.1 pg (27.0-33.0); Mean Corpuscular Volume 83.7 fL (80.0-98.0); Mean Platelet Volume 11.4 fL (9.4-12.3); Platelet Count 214 X10*3/uL (160-400); Red Cell Distribution Width 14.2 % (11.0-16.0); White Blood Count 9.4 X10*3/uL (4.8-10.8)
[2022-06-10 12:28] LABS: Glucose 1 Hour PP 50gm Dose 154 mg/dL (60-140)
[2022-06-10 13:09] LABS: Syphilis Screen Nonreactive (Nonreactive)
== END 2022-06-10 10:11 | disposition home or self-care (01) ==
LOC: HO.LAB 10:10
PROVIDERS: PCP Internal Medicine; Visit Provider Advanced Practice Midwife
DX: O26.899 Other specified pregnancy related conditions, unspecified trimester (principal); L30.9 Dermatitis, unspecified
CPT/HCPCS: 36415; 85027; 86780

== ENCOUNTER → 2022-06-14 13:29 | Outpatient (BNVA) | payer OTHER, SELFPAY | PROVIDERS: PCP Internal Medicine; Visit Provider Advanced Practice Midwife | DX: Z34.93 Encounter for supervision of normal pregnancy, unspecified, third trimester (principal); Z3A.29 29 weeks gestation of pregnancy | CPT/HCPCS: 99212 ==

== ENCOUNTER 2022-06-18 07:26 | Outpatient (REF) | payer OTHER, SELFPAY ==
[2022-06-18 08:39] LABS: Glucose Fasting 89 mg/dL (60-99)
[2022-06-18 10:43] LABS: Glucose 1 Hour 161 mg/dL
[2022-06-18 10:43] LABS: Glucose 2 Hour 102 mg/dL
[2022-06-18 11:51] LABS: Glucose 3 Hour 110 mg/dL
== END 2022-06-18 07:27 | disposition home or self-care (01) ==
LOC: HO.LAB 07:26
PROVIDERS: PCP Internal Medicine; Visit Provider Advanced Practice Midwife
DX: R73.09 Other abnormal glucose (principal)
CPT/HCPCS: 36415; 82951

== ENCOUNTER → 2022-06-28 13:45 | Outpatient (BNVA) | payer OTHER, SELFPAY | PROVIDERS: PCP Internal Medicine; Visit Provider Advanced Practice Midwife | DX: O26.893 Other specified pregnancy related conditions, third trimester (principal); L30.9 Dermatitis, unspecified; Z3A.31 31 weeks gestation of pregnancy | CPT/HCPCS: 99212 ==

== ENCOUNTER → 2022-07-13 11:40 | Outpatient (BNVA) | payer OTHER, SELFPAY | PROVIDERS: PCP Internal Medicine; Visit Provider Obstetrics & Gynecology | DX: Z34.03 Encounter for supervision of normal first pregnancy, third trimester (principal); Z3A.33 33 weeks gestation of pregnancy | CPT/HCPCS: 99212 ==

== ENCOUNTER 2022-07-23 08:16 | Outpatient (REF) | payer OTHER, SELFPAY ==
[2022-07-23 09:12] LABS: Alanine Aminotransferase 34 U/L (0-31); Aspartate Amino Transferase 27 U/L (5-31)
== END 2022-07-23 08:17 | disposition home or self-care (01) ==
LOC: HO.LAB 08:16
PROVIDERS: PCP Internal Medicine; Visit Provider Obstetrics & Gynecology
DX: Z34.93 Encounter for supervision of normal pregnancy, unspecified, third trimester (principal)
CPT/HCPCS: 36415; 84450; 84460

== ENCOUNTER → 2022-07-29 09:49 | Outpatient (BNVA) | payer OTHER, SELFPAY | PROVIDERS: PCP Internal Medicine; Visit Provider Advanced Practice Midwife | DX: Z34.03 Encounter for supervision of normal first pregnancy, third trimester (principal); Z3A.35 35 weeks gestation of pregnancy | CPT/HCPCS: 81003; 99212 ==

== ENCOUNTER 2022-08-04 09:29 | Outpatient (REF) | payer OTHER, SELFPAY ==
[2022-08-05 05:18] LABS: CT PCR NOT DETECTED (Not Detect.); NG PCR NOT DETECTED (Not Detect.)
== END 2022-08-04 09:30 | disposition home or self-care (01) ==
LOC: HO.LNP 09:29
PROVIDERS: PCP Internal Medicine; Visit Provider Advanced Practice Midwife
DX: O99.213 Obesity complicating pregnancy, third trimester (principal); E66.01 Morbid (severe) obesity due to excess calories; O26.893 Other specified pregnancy related conditions, third trimester; R79.89 Other specified abnormal findings of blood chemistry; Z3A.36 36 weeks gestation of pregnancy
CPT/HCPCS: 81003; 87081; 87491; 87591; 99212

== ENCOUNTER → 2022-08-11 14:36 | Outpatient (BNVA) | payer OTHER, SELFPAY | PROVIDERS: PCP Internal Medicine; Visit Provider Obstetrics & Gynecology | DX: Z34.93 Encounter for supervision of normal pregnancy, unspecified, third trimester (principal); Z3A.37 37 weeks gestation of pregnancy | CPT/HCPCS: 99212 ==

== ENCOUNTER 2022-08-11 15:22 | Outpatient (REF) | payer OTHER, SELFPAY ==
[2022-08-11 16:33] LABS: Alanine Aminotransferase 26 U/L (0-31); Aspartate Amino Transferase 19 U/L (5-31)
== END 2022-08-11 15:23 | disposition home or self-care (01) ==
LOC: HO.LAB 15:22
PROVIDERS: PCP Internal Medicine; Visit Provider Obstetrics & Gynecology
DX: O26.893 Other specified pregnancy related conditions, third trimester (principal); R79.89 Other specified abnormal findings of blood chemistry
CPT/HCPCS: 36415; 84450; 84460

== ENCOUNTER → 2022-08-19 09:31 | Outpatient (BNVA) | payer OTHER, SELFPAY | PROVIDERS: PCP Internal Medicine; Visit Provider Advanced Practice Midwife | DX: Z34.93 Encounter for supervision of normal pregnancy, unspecified, third trimester (principal); Z3A.38 38 weeks gestation of pregnancy | CPT/HCPCS: 99212 ==

== ENCOUNTER 2022-08-26 13:46 | Outpatient (REF) | payer OTHER, SELFPAY ==
[2022-08-27 15:02] LABS: BV Int Neg Control Negative (Negative); BV Int Pos Control Positive (Positive)
== END 2022-08-26 13:47 | disposition home or self-care (01) ==
LOC: HO.LNP 13:46
PROVIDERS: Visit Provider Advanced Practice Midwife
DX: N89.8 Other specified noninflammatory disorders of vagina (principal)
CPT/HCPCS: 87480; 87510; 87660; 99212

== ENCOUNTER → 2022-10-11 10:59 | Outpatient (BNVA) | payer OTHER, SELFPAY | PROVIDERS: PCP Internal Medicine; Visit Provider Advanced Practice Midwife | DX: Z39.2 Encounter for routine postpartum follow-up (principal) | CPT/HCPCS: 99212 ==

== ENCOUNTER 2022-10-21 13:07 | Outpatient (REF) | payer OTHER, SELFPAY ==
[2022-10-21 14:20] LABS: Hematocrit 38.2 % (37.0-47.0); Hemoglobin 11.4 g/dl (12.0-16.0); Mean Corpuscular HGB Conc 29.8 g/dl (31.0-35.0); Mean Corpuscular Hemoglobin 23.3 pg (27.0-33.0); Mean Corpuscular Volume 78.1 fL (80.0-98.0); Mean Platelet Volume 11.1 fL (9.4-12.3); Platelet Count 255 X10*3/uL (160-400); Red Blood Count 4.89 X10*6/uL (4.20-5.50); Red Cell Distribution Width 16.2 % (11.0-16.0); White Blood Count 7.5 X10*3/uL (4.8-10.8)
[2022-10-21 14:59] LABS: Alanine Aminotransferase 49 U/L (0-31); Aspartate Amino Transferase 37 U/L (5-31); Glucose Random 83 mg/dL (60-115)
[2022-10-21 15:13] LABS: Thyroid Stimulating Hormone 0.93 uIU/mL (0.32-4.0)
== END 2022-10-21 13:08 | disposition home or self-care (01) ==
LOC: HO.LAB 13:07
PROVIDERS: PCP Internal Medicine; Visit Provider Advanced Practice Midwife
DX: R73.09 Other abnormal glucose (principal); R79.89 Other specified abnormal findings of blood chemistry; L30.9 Dermatitis, unspecified; E66.01 Morbid (severe) obesity due to excess calories
CPT/HCPCS: 36415; 82947; 84443; 84450; 84460; 85027

== ENCOUNTER 2022-11-04 08:43 | Outpatient (REF) | payer OTHER, SELFPAY ==
--- NOTE | ~2022-11-04 | US_ITS ---
EXAMINATION: US ABDOMEN COMPLETE CLINICAL INFORMATION: Abnormal LFTs. COMPARISON: None TECHNIQUE: Real-time imaging of the abdominal viscera. FINDINGS: PANCREAS: Normal. ABDOMINAL AORTA: The proximal, mid, and distal segments are normal in caliber. INFERIOR VENA CAVA: Visualized portions are normal. LIVER: The liver is normal in size. The liver contour is normal. There is diffuse increased liver parenchymal echogenicity. No focal hepatic lesion. There is no intrahepatic biliary duct dilatation seen. GALLBLADDER: Normal. The gallbladder is physiologically distended without evidence of stones, sludge, polyps, wall thickening or pericholecystic fluid. COMMON BILE DUCT: Normal in caliber measuring 0.5 cm in diameter. RIGHT KIDNEY: Normal. No hydronephrosis. No renal calculi or focal parenchymal lesions. The kidney measures 10.0 cm in maximum dimension. LEFT KIDNEY: Normal. No hydronephrosis. No renal calculi or focal parenchymal lesions. The kidney measures 10.1 cm in maximum dimension. SPLEEN: Normal. The spleen measures 9.6 cm in maximum dimension. FREE FLUID: None. US/US abdomen complete IMPRESSION: There is generalized increase in hepatic echotexture, consistent with fatty infiltration or hepatocellular disease. Please correlate clinically. No focal hepatic mass or intrahepatic biliary dilatation is seen.
== END 2022-11-04 08:44 | disposition home or self-care (01) ==
LOC: HO.HMGCX 08:43
PROVIDERS: PCP Internal Medicine; Visit Provider Internal Medicine
DX: R79.89 Other specified abnormal findings of blood chemistry (principal)
CPT/HCPCS: 76700

== ENCOUNTER 2022-11-14 11:00 | Outpatient (REF) | payer OTHER, SELFPAY ==
[2022-11-14 18:39] LABS: CT PCR NOT DETECTED (Not Detect.); NG PCR NOT DETECTED (Not Detect.)
== END 2022-11-14 11:01 | disposition home or self-care (01) ==
LOC: HO.LNP 11:00
PROVIDERS: PCP Internal Medicine; Visit Provider Obstetrics & Gynecology
DX: Z12.4 Encounter for screening for malignant neoplasm of cervix (principal); N88.9 Noninflammatory disorder of cervix uteri, unspecified
CPT/HCPCS: 0353U; 57454; 88142; 88305

== ENCOUNTER 2022-11-15 08:43 | Outpatient (REF) | payer OTHER, SELFPAY | END 2022-11-15 08:44 | disposition home or self-care (01) | LOC: HO.LNP 08:43 | PROVIDERS: Visit Provider Obstetrics & Gynecology | DX: Z13.89 Encounter for screening for other disorder (principal) ==

== ENCOUNTER → 2022-12-07 12:11 | Outpatient (BNVA) | payer OTHER, SELFPAY | PROVIDERS: PCP Internal Medicine; Visit Provider Obstetrics & Gynecology | DX: Z13.89 Encounter for screening for other disorder (principal) ==

== ENCOUNTER 2023-01-16 12:29 | Outpatient (REF) | payer OTHER, SELFPAY ==
[2023-01-16 12:44] LABS: MANUAL DIFF FLAG NO
[2023-01-16 13:08] LABS: Basophils Percent Auto 0.5 % (0-2); Eosinophils Absolute Auto 0.2 X10*3/uL (0.0-0.4); Hematocrit 36.5 % (37.0-47.0); Hemoglobin 11.7 g/dl (12.0-16.0); Imm Gran Abs Auto 0.02 X10*3/uL (0.00-0.03); Imm Gran Pct Auto 0.3 % (0.0-0.4); Lymphocytes Absolute Auto 1.8 X10*3/uL (1.2-4.9); Lymphocytes Percent Auto 23.8 % (20-40); Mean Corpuscular HGB Conc 32.1 g/dl (31.0-35.0); Mean Corpuscular Hemoglobin 24.7 pg (27.0-33.0); Mean Platelet Volume 11.3 fL (9.4-12.3); Monocytes Absolute Auto 0.6 X10*3/uL (0.1-1.2); Monocytes Percent Auto 7.8 % (2-11); Neutrophils Percent Auto 64.6 % (45-73); Platelet Count 251 X10*3/uL (160-400); Red Blood Count 4.74 X10*6/uL (4.20-5.50); Red Cell Distribution Width 16.8 % (11.0-16.0); White Blood Count 7.7 X10*3/uL (4.8-10.8)
[2023-01-16 13:39] LABS: Alanine Aminotransferase 18 U/L (0-31); Albumin Level 4.1 g/dL (3.5-5.0); Alkaline Phosphatase 98 U/L (39-117); Anion Gap 10 (12-20); Aspartate Amino Transferase 20 U/L (5-31); Bilirubin Direct 0.1 mg/dL (0.0-0.5); Bilirubin Total 0.4 mg/dL (0.0-1.0); Blood Urea Nitrogen 9 mg/dL (9-16); Calcium 9.2 mg/dL (8.4-10.2); Carbon Dioxide 23 mmol/L (22-29); Chloride 111 mmol/L (96-108); Cholesterol 172 mg/dL; Estimated Glomerular Filt Rate > 60; Glucose Fasting 90 mg/dL (60-99); HDL Cholesterol 40 mg/dL; Iron 30 mcg/dL (30-160); LDL Cholesterol Calculated 108 mg/dl; Percent Iron Saturation 10 % (15-50); Potassium 4.3 mmol/L (3.3-5.1); Sodium 140 mmol/L (135-145); Total Iron Binding Capacity 311 mcg/dL (228-428); Triglycerides 124 mg/dL; Unsaturated Iron Binding 281 ug/dL
[2023-01-16 17:56] LABS: CT PCR NOT DETECTED (Not Detect.); NG PCR NOT DETECTED (Not Detect.)
== END 2023-01-16 12:30 | disposition home or self-care (01) ==
LOC: HO.LAB 12:29
PROVIDERS: Obstetrics & Gynecology; PCP Internal Medicine; Visit Provider Internal Medicine
DX: Z00.00 Encounter for general adult medical examination without abnormal findings (principal); N88.9 Noninflammatory disorder of cervix uteri, unspecified; R79.89 Other specified abnormal findings of blood chemistry; D64.9 Anemia, unspecified; D50.9 Iron deficiency anemia, unspecified; Z20.2 Contact with and (suspected) exposure to infections with a predominantly sexual mode of transmission
CPT/HCPCS: 0353U; 36415; 80053; 80061; 80076; 82248; 83540; 85025

== ENCOUNTER 2023-05-15 16:23 | Outpatient (REF) | payer OTHER, SELFPAY ==
--- NOTE | ~2023-05-15 | XR_ITS ---
EXAMINATION: XR RIBS, LEFT CLINICAL INFORMATION: Pleurodynia COMPARISON: March 2022. TECHNIQUE: 5 views of the left ribs and single chest x-ray performed. FINDINGS: No appreciable airspace consolidation or pneumothorax. Pulmonary vascularity unremarkable. The views of the left ribs demonstrate no evidence for acute fracture. No distinct erosive process seen. XR/XR ribs LT min 3V w CXR1V IMPRESSION: No evidence for acute process.
== END 2023-05-15 16:24 | disposition home or self-care (01) ==
LOC: HO.XRAY 16:23
PROVIDERS: PCP Internal Medicine; Visit Provider Internal Medicine
DX: R07.81 Pleurodynia (principal)
CPT/HCPCS: 71101

== ENCOUNTER 2023-05-25 10:04 | Outpatient (REF) | payer OTHER, SELFPAY ==
[2023-05-25 10:14] LABS: MANUAL DIFF FLAG NO
[2023-05-25 10:45] LABS: Basophils Percent Auto 0.5 % (0-2); Eosinophils Absolute Auto 0.2 X10*3/uL (0.0-0.4); Eosinophils Percent Auto 1.8 % (0-4); Hematocrit 37.8 % (37.0-47.0); Hemoglobin 11.9 g/dl (12.0-16.0); Imm Gran Abs Auto 0.02 X10*3/uL (0.00-0.03); Imm Gran Pct Auto 0.2 % (0.0-0.4); Lymphocytes Absolute Auto 1.6 X10*3/uL (1.2-4.9); Lymphocytes Percent Auto 19.1 % (20-40); Mean Corpuscular HGB Conc 31.5 g/dl (31.0-35.0); Mean Corpuscular Hemoglobin 23.5 pg (27.0-33.0); Mean Corpuscular Volume 74.7 fL (80.0-98.0); Mean Platelet Volume 10.8 fL (9.4-12.3); Monocytes Absolute Auto 0.8 X10*3/uL (0.1-1.2); Monocytes Percent Auto 9.3 % (2-11); Neutrophils Absolute Auto 5.7 x10*3/uL (2.0-8.3); Neutrophils Percent Auto 69.1 % (45-73); Platelet Count 246 X10*3/uL (160-400); Red Blood Count 5.06 X10*6/uL (4.20-5.50); Red Cell Distribution Width 16.1 % (11.0-16.0); White Blood Count 8.3 X10*3/uL (4.8-10.8)
[2023-05-25 11:18] LABS: Iron 29 mcg/dL (30-160); Percent Iron Saturation 9 % (15-50); Total Iron Binding Capacity 321 mcg/dL (228-428); Unsaturated Iron Binding 292 ug/dL
[2023-05-25 11:34] LABS: Vitamin D 25-OH Total 22.2 ng/mL (>30)
== END 2023-05-25 10:05 | disposition home or self-care (01) ==
LOC: HO.LAB 10:04
PROVIDERS: PCP Internal Medicine; Visit Provider Internal Medicine
DX: E55.9 Vitamin D deficiency, unspecified (principal); D64.9 Anemia, unspecified
CPT/HCPCS: 36415; 82306; 83540; 85025

== ENCOUNTER 2023-06-29 15:34 | Outpatient (AMB) | payer OTHER, SELFPAY ==
[2023-06-29 15:36] VITALS: BP 130/82; BMI 39.3
--- NOTE | 2023-06-29 15:36 | A.OFFPC_ITS ---
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 Accompanied by: Self / Same As Patient Allergies Sulfa (Sulfonamide Antibiotics) Allergy (Intermediate, Verified 06/29/23 15:44) rash sulfamethoxazole [From Bactrim] Allergy (Intermediate, Verified 06/29/23 15:44) Hives trimethoprim [From Bactrim] Allergy (Intermediate, Verified 06/29/23 15:44) Hives nuts Allergy (Intermediate, Uncoded 06/29/23 15:44) itchy throat Medication List - Last Reconciled 06/29/23 by Rosalie Echevarria MD cholecalciferol (vitamin D3) 50 mcg PO DAILY 90 days Tobacco use date assessed: 12/27/22 Dental Screening Dental Screen Date: 06/29/23 Did you have a dental visit in the last 12 months?: Yes Did you have a dental problem in the last 6 months where you did not have access to dental care?: No Was dental information given to patient?: Patient has dentist HPI HPI Comments History of Present Illness Details This is a 23-year-old female that complains of left and right upper quadrant abdominal pain has been present for over 6 months. Started in the left hand now has radiate to the right. No change in bowel habits. No previous trauma. Has history of fatty liver. [facility] Medical History Anemia Chest pain Chest pain Constipation by delayed colonic transit COVID-19 Elevated liver function tests (~08/04/22) Encounter for physical examination Eye abnormality Hospital discharge follow-up Lower back pain Migraine Missed period Nausea Obesity, morbid, BMI 40.0-49.9 Surgical History [place] teeth removed Family History Father Hypertension Mother History of pre-eclampsia Maternal Grandmother Diabetes Paternal Grandmother Hypertension Brother No problems noted. Social History Household Members: Significant Other and Family Both parents involved: Yes Caregiver staying overnight: No Housing: House Are you a primary nurse healthcare manager to a significant other at home: No Do you presently have visiting nurse or other home services: No 75 years or older and lives alone: No Alcohol intake: never Patient Tobacco Use Status: Never used Tobacco e-Cigarette/Vaping Use: Never Used Second Hand Smoke Exposure: No Special mercy needs: No Agree to transfusion: Yes service: No Current occupational status: employed Current occupational exposures/hazards: No Cognitive needs: No Hearing needs: No Vision needs: Yes Female Reproductive History Menstrual Age of Menarche: 9 Questionnaire Thrive Questionnaire Date Thrive assessed: 12/27/22 DEVORA-7 AMB Questionnaire DEVORA-7 Date DEVORA - 7 assessed: 12/27/22 Source: Developed by Drs. Reji Tejeda, Nathalia Langley, Reginald Akhtar and colleagues, with an educational bryanna from [employer]. Review of Systems Const All systems reviewed & are unremarkable except as noted in HPI and below Eyes Reports no additional complaints, Denies change in vision and Denies other visual disturbances Card Denies chest pain at rest, Denies chest pain with activity, Denies edema, Denies irregular heart rhythm, Denies claudication, Denies dyspnea, Denies dyspnea on exertion, Denies orthopnea, Denies paroxysmal nocturnal dyspnea and Denies slow heart rate Resp Denies cough, Denies dyspnea and Denies dyspnea on exertion GI Reports abdominal pain, Denies change in bowel habits, Denies excessive flatus, Denies nausea and Denies vomiting Denies urinary incontinence, Denies urinary hesitancy and Denies urinary urgency Musc Denies abnormal gait, Denies atrophy, Denies deformity and Denies limited range of motion Skin/Breast Denies bleeding lesions, Denies changing lesions and Denies rash Neuro Denies abnormal gait and Denies lack of coordination Physical exam (Primary Care) Vital Signs: Last Vital Signs BP 130/82 06/29/23 15:36 BMI result Body Mass Index 39.3 Tobacco/Smoking Status: Tobacco use Status Tobacco use date assessed 12/27/22 06/29/23 15:40 Patient Tobacco Use Status Never used Tobacco 06/29/23 15:40 e-Cigarette/Vaping Use Never Used 06/29/23 15:40 Thrive Assessment: Date of Thrive Assessment Date Thrive assessed 12/27/22 06/29/23 15:40 Eyes General: appearance normal, both eyes and all related structures Eyelids: Yes eyelids normal Conjunctivae: conjunctivae normal Neck Neck: Yes normal visual inspection and Yes supple Resp Effort & Inspection: normal respiratory effort Auscultation: clear to auscultation bilaterally Cardio Jugular venous distension: no JVD Rate: regular rate Rhythm: regular rhythm Heart sounds: S1 normal heart sound present and S2 normal heart sound present GI Inspection: Yes normal to inspection Palpation (GI): Soft to palpation and nontender Auscultation: normal bowel sounds Extrem General: Yes full ROM Assessment and Plan Assessment & Plan (1) Abdominal pain: Code(s): R10.9 - Unspecified abdominal pain Plan: Labs and ultrasound were ordered. Referral to Gastroenterology. Orders: Orders Comprehensive Met. Panel Today R10.9 - Unspecified abdominal pain US abdomen comp w elastography Today R10.9 - Unspecified abdominal pain Referrals Gastroenterology Referral R10.9 - Unspecified abdominal pain Coding Level of Care Code Est Pt Level 3 (24703) Diagnoses Abdominal pain R10.9 Time Spent (min) 19
== END 2023-06-29 15:49 | disposition home or self-care (01) ==
PROVIDERS: PCP Internal Medicine; Visit Provider Internal Medicine
DX: R10.9 Unspecified abdominal pain (principal)
CPT/HCPCS: 99213

== ENCOUNTER 2023-07-17 08:59 | Outpatient (REF) | payer OTHER, SELFPAY | END 2023-07-17 09:00 | disposition home or self-care (01) | LOC: HO.US 08:59 | PROVIDERS: PCP Internal Medicine; Visit Provider Internal Medicine | DX: R10.9 Unspecified abdominal pain (principal); D64.9 Anemia, unspecified | CPT/HCPCS: 36415; 76705; 76981; 80053; 83540; 85025 ==

== ENCOUNTER 2023-08-18 14:46 | Outpatient (AMB) | payer OTHER, SELFPAY ==
--- NOTE | 2023-08-18 14:57 | A.OFFVIS_ITS ---
Intake Vital Signs 08/18/23 14:59 Height 5 ft 3 in Weight 219 lb 2.232 oz BMI 38.8 BP 131/81 Blood Pressure Location Lt brachial Position Sitting Pulse 93 Intake Visit Reasons: Abdominal pain Intake Note: Patient presents to in office visit today as a new patient for abdominal pain. CC: Patient c/o mid abdominal pain and burning for about a year since after she gave . She also reports occasional nausea after eating, GERD, and constipation. Allergies Sulfa (Sulfonamide Antibiotics) Allergy (Intermediate, Verified 08/18/23 15:02) rash sulfamethoxazole [From Bactrim] Allergy (Intermediate, Verified 08/18/23 15:02) Hives trimethoprim [From Bactrim] Allergy (Intermediate, Verified 08/18/23 15:02) Hives nuts Allergy (Intermediate, Uncoded 06/29/23 15:44) itchy throat HPI Abdominal pain HPI Details 23-year-old female here for initial eval uation of abdominal pain. She is referred by .Rosalie Aceves of [facility] primary care. PMX Morbid obesity Impaired fasting glucose Anemia Migraines Constipation Severe eczema BERNAL Cervical lesion Iron deficiency anemia * SURGICAL HISTORY [place] teeth removed * ALLERGIES Sulfa Nuts * [facility]: Laboratory Tests 01/16/23 07/17/23 07/17/23 12:43 09:55 09:55 WBC 6.0 Hgb 11.6 L Hct 37.7 MCV 74.5 L MCH 22.9 L Plt Count 235 Estimated GFR > 60 Total Bilirubin 0.2 Direct Bilirubin 0.1 AST 18 ALT 14 Alkaline Phosphata se 82 US ABD WITH ELASTOGRAPHY (F-0) FINDINGS: PANCREAS: Limited. The visualized pancreatic head and body are normal in appearance. The remainder of the pancreas is obscured from visualization by the overlying bowel gas. ABDOMINAL AORTA: The proximal, middle, and distal aortic segments are normal in caliber. INFERIOR VENA CAVA: Visualized portions are normal. LIVER: Normal. The liver demonstrates normal size, contour and echogenicity. No focal lesion or intrahepatic biliary duct dilatation. The right lobe measures 12.6 cm in length. The left lobe measures 10.6 cm in length. Portal flow is towards the liver (hepatopetal). Shear wave liver elastography median stiffness is 1.38 m/s (reference: normal median stiffness is 1.3 m/s or less). IQR/median stiffness to assess sampling precision is 0.16 (reference: good quality data set is IQR/median stiffness of 0.15 or less). GALLBLADDER: Normal. The gallbladder is physiologically distended without evidence of stones, sludge, polyps, wall thickening or pericholecystic fluid. COMMON BILE DUCT: Normal in caliber measuring 0.4 cm in diameter. RIGHT KIDNEY: Normal. No hydronephrosis. No renal calculi or focal parenchymal lesions. The kidney measures 9.9 cm in maximum dimension. LEFT KIDNEY: Normal. No hydronephrosis. No renal calculi or focal parenchymal lesions. The kidney measures 9.2 cm in maximum dimension. SPLEEN: Normal. The spleen measures 8.7 cm in maximum dimension. FREE FLUID: None. US/US abdomen comp w elastography IMPRESSION: 1. Liver elastography: Although measure ments appear to rule out compensated advanced chronic liver disease, there is statistical variability of the sampling which decreases accuracy. 2. Technically limited ultrasound examin ation of the pancreatic tail. 07/19/23 TODAY'S VISIT Ever since she gave she has been having pain in the upper abdomen that is midline and burning. It was constant for 2 mos, and then it went away over the past 2 weeks. She was having frequent nausea after eating and she still has this sometimes. She has been experiencing GERD which she has been treating only with [id number]-wnbyfvs Tums. She does suffer chronic constipation at her baseline which is worse after . She has been using eyeu-lhm-ybyvnta MiraLax which soften stools but she admits that she has a feeling of incomplete evacuation. She does not move her bowels every day and the last time she moved than was about 2 days ago. I think constipation is really the underlying process and since her symptoms are generally improving as her body recovers from the birthing process (her son is almost 1-year-old) I do not want to do a lot of interventions. I think will do an H pylori breath test and start her on senna 1-2 tabs at bedtime as a mild stimulant laxative to give her better evacuation. I am able to recreate her pain slightly by pushing on the left colon which likely is full at this time and seems to confirm my initial train of thought. It does not hurt were I push but she feels like something pushes over towards the midline. Return office visit in 4 weeks. She has not had a thyroid test and a while given the constipation I will order this as well. [facility] Medical History Elevated liver function tests (~08/04/22) Obesity, morbid, BMI 40.0-49.9 Chest pain Hospital discharge follow-up Missed period Encounter for physical examination Constipation by delayed colonic transit Eye abnormality Chest pain COVID-19 Nausea Lower back pain Migraine Anemia Surgical History [place] teeth removed Family History Father Hypertension Mother History of pre-eclampsia Maternal Grandmother Diabetes Paternal Grandmother Hypertension Brother No problems noted. Paternal Aunt Cancer Social History Household Members: Significant Other and Family Both parents involved: Yes Caregiver staying overnight: No Housing: House Are you a primary care transition mgr to a significant other at home: No Do you presently have visiting nurse or other home services: No 75 years or older and lives alone: No Alcohol intake: never Patient Tobacco Use Status: Never used Tobacco e-Cigarette/Vaping Use: Never Used Second Hand Smoke Exposure: No Special mercy needs: No Agree to transfusion: Yes service: No Current occupational status: employed Current occupational exposures/hazards: No Cognitive needs: No Hearing needs: No Vision needs: Yes Female Reproductive History Menstrual Age of Menarche: 9 Review of Systems Const Denies fatigue, Denies fever(s), Denies night sweats, Denies poor appetite and Denies weight loss Eyes Details: glasses Reports requires corrective lenses ENT Reports Normal hearing present, Denies dental pain, Denies dysphagia, Denies hearing loss, Denies mouth pain, Denies odynophagia, Denies throat swelling, Denies tongue swelling and Reports other (Dentition adequate) Card Reports no additional complaints Resp Reports no additional complaints GI Reports abdominal pain, Denies melena, Denies bloating, Denies hematochezia, R eports constipation, Denies GI cramping, Denies dysphagia, Denies excessive flatus, Denies early satiety, Reports heartburn, Denies diarrhea, Reports nausea, Denies odynophagia, Denies vomiting and Denies hematemesis Skin/Breast Denies pruritus, Denies lesions, Denies rash and Denies jaundice Neuro Reports Normal hearing present and Denies Abnormal speech present Endo Denies fatigue Aller/Immun Denies throat swelling and Denies tongue swelling Physical Exam Vital Signs: Last Vital Signs Pulse 93 08/18/23 14:59 BP 131/81 08/18/23 14:59 BMI result Body Mass Index 38.8 Const General: cooperative, no acute distress, well developed and well groomed Nutritional Appearance: well nourished and obese Orientation/consciousness: oriented to person, oriented to place and oriented to time Limitations: No language barrier HEENT Head: Yes normocephalic and Yes atraumatic Eyes General: appearance normal, both eyes and all related structures Pupils: Equal, round and reactive pupils present Neck Neck: Yes normal visual inspection and Yes no lymphadenopathy Thyroid: Thyroid normal Resp Effort & Inspection: normal respiratory effort and able to speak in complete sentences Auscultation: clear to auscultation bilaterally Cardio Rate: regular rate Rhythm: regular rhythm Heart sounds: Normal, physiologic split S2 sound present Peripheral pulses: radial pulses present and posterior tibial pulses present GI Inspection: No distended, Yes Abdominal panniculus present, Yes obesity and Yes striae Palpation (GI): Soft to palpation, Tenderness to palpation present (GI) (Very mild left of mid line gastric area with compression of the left side o), no guarding, not rigid and No hepatosplenomegaly present Percussion: Yes normal to percussion Auscultation: normal bowel sounds Rectal Exam - Female: deferred Skin General skin exam: no rashes or lesions noted, turgor normal, skin not dry, no jaundice, No spider nevi and no striae Rashes: no rashes Nails: normal Neuro General: oriented to person, oriented to place and oriented to time Cranial nerves: Yes Equal, round and reactive pupils present and Yes Normal hearing present Speech: No Abnormal speech present Extrem General: Yes normal to inspection, No clubbing, No cyanosis and No edema Psych Appearance: grossly normal and well kempt Mental Status: mental status grossly normal Speech and movement: Normal speech and movement present Affect: normal affect Attitude: cooperative Thought process: Normal thought process present and not confabulating Thought content: Normal thought content present Insight: Fair insight present (Psych) Judgement: Fair judgement present (Psych) Assessment & Plan Assessment & Plan (1) Constipation by delayed colonic transit: Code(s): K59.01 - Slow transit constipation (2) Nausea: Code(s): R11.0 - Nausea (3) Abdominal pain: Code(s): R10.9 - Unspecified abdominal pain Plan Ever since she gave she has been having pain in the upper abdomen that is midline and burning. It was constant for 2 mos, and then it went away over the past 2 weeks. She was having frequent nausea after eating and she still has this sometimes. She has been experiencing GERD which she has been treating only with bdpv-vqf-zoizzvn Tums. She does suffer chronic constipation at her baseline which is worse after . She has been using rwry-wcz-xazwric MiraLax which soften stools but she admits that she has a feeling of incomplete evacuation. She does not move her bowels every day and the last time she moved than was about 2 days ago. I think constipation is really the underlying process and since her symptoms are generally improving as her body recovers from the birthing process (her son is almost 1-year-old) I do not want to do a lot of interventions. I think will do an H pylori breath test and start her on senna 1-2 tabs at bedtime as a mild stimulant laxative to give her better evacuation. I am able to recreate her pain slightly by pushing on the left colon which likely is full at this time and seems to confirm my initial train of thought. It does not hurt were I push but she feels like something pushes over towards the midline. Return office visit in 4 weeks. She has not had a thyroid test and a while given the constipation I will order this as well. Orders: Orders H Pylori Breath Test 08/18/23 R10.9 - Unspecified abdominal pain TSH reflex Free T4 08/18/23 K59.01 - Slow transit constipation Medications: New sennosides (Senna Laxative) 17.2 mg (2 x 8.6 mg) PO BEDTIME 60 tabs 6RF K59.01 - Slow transit constipation, R11.0 - Nausea Coding Level of Care Code Est Pt Level 3 (74581) Diagnoses Constipation by delayed colonic transit K59.01 Nausea R11.0 Abdominal pain R10.9
[2023-08-18 14:59] VITALS: BP 131/81; PULSE 93; BMI 38.8
== END 2023-08-18 16:20 | disposition home or self-care (01) ==
PROVIDERS: PCP Internal Medicine; Visit Provider Nurse Practitioner
DX: K59.01 Slow transit constipation (principal); R11.0 Nausea; R10.9 Unspecified abdominal pain
CPT/HCPCS: 99213

== ENCOUNTER 2023-08-18 14:46 | Outpatient (REF) | payer OTHER, SELFPAY ==
[2023-08-20 12:21] LABS: H Pylori Breath Test Negative (Negative)
== END 2023-08-18 14:47 | disposition home or self-care (01) ==
LOC: HO.LNP 14:46
PROVIDERS: PCP Internal Medicine; Visit Provider Nurse Practitioner
DX: R10.9 Unspecified abdominal pain (principal); R11.0 Nausea; K59.01 Slow transit constipation
CPT/HCPCS: 83013

== ENCOUNTER 2023-11-07 10:16 | Outpatient (AMB) | payer OTHER, SELFPAY ==
--- NOTE | 2023-11-07 10:36 | A.OFFVIS_ITS ---
Intake Vital Signs 11/07/23 10:37 Height 5 ft 3 in Weight 214 lb BMI 37.9 BP 110/60 Intake Visit Reasons: Lt breast lmp Fig Washer Required: No Information Interpreted: clinical only Handyman: Handyman Present Allergies Sulfa (Sulfonamide Antibiotics) Allergy (Intermediate, Verified 11/07/23 10:37) rash sulfamethoxazole [From Bactrim] Allergy (Intermediate, Verified 11/07/23 10:37) Hives trimethoprim [From Bactrim] Allergy (Intermediate, Verified 11/07/23 10:37) Hives nuts Allergy (Intermediate, Uncoded 11/07/23 10:37) itchy throat Medication List - Last Reconciled 11/07/23 by Beatriz Clifford CNM No Known Home Meds Is last menstrual period known: Yes Last menstrual period: 10/11/23 Patient : No Do you need a note to return to daycare/school/sports/work: No HPI Lt breast lmp HPI Details Patient is here to check a lump that she found on do doing self-breast exam on her left side her baby is [id number]. She nursed her baby for 4 months. She still sometimes leaks she thinks she is due for. Her last period was October 11. She says she is lost about 30 lb since the .. She still suffers from very bad eczema and she is scratching. Currently she is using kuee-ofm-adfkpjv treatments. She has her next appointment with Dermatology in January very difficult to get a sooner appointment. She did not want to be on any stronger medications when she was nursing her baby . She was on pills but she was getting a lot of leg cramps but they went away when she stopped the leg cramps. Currently she is checking her. And suppose it fertile times on an kj. She and her plan to wait for 2 years before conceiving but she is beginning to wonder about timing. [facility] Medical History Elevated liver function tests (~08/04/22) Obesity, morbid, BMI 40.0-49.9 Chest pain Hospital discharge follow-up Missed period Encounter for physical examination Constipation by delayed colonic transit Eye abnormality Chest pain COVID-19 Nausea Lower back pain Migraine Anemia Surgical History [place] teeth removed Family History Father Hypertension Mother History of pre-eclampsia Maternal Grandmother Diabetes Paternal Grandmother Hypertension Brother No problems noted. Paternal Aunt Cancer Social History Household Members: Significant Other and Family Both parents involved: Yes Caregiver staying overnight: No Housing: House Are you a primary home care provider to a significant other at home: No Do you presently have visiting nurse or other home services: No 75 years or older and lives alone: No Alcohol intake: never Patient Tobacco Use Status: Never used Tobacco e-Cigarette/Vaping Use: Never Used Second Hand Smoke Exposure: No Special mercy needs: No Agree to transfusion: Yes Patient : No service: No Current occupational status: employed Current occupational exposures/hazards: No Cognitive needs: No Hearing needs: No Vision needs: Yes Female Reproductive History Menstrual Age of Menarche: 9 Duration of menses: 3-5 days Date of last menstrual period: 10/11/23 control method: none Total pregnancies: 1 Full term: 1 Date of last pap smear: 11/15/22 (negative) History of abnormal pap smear: No Physical Exam Vital Signs: Last Vital Signs BP 110/60 11/07/23 10:37 BMI result Body Mass Index 37.9 Const Other: She has numerous patches of skin scarred by eczematous lesions patient is itchy on her arms and upper body, and is scratching. Chest Other: Both breasts examined right breast no masses left breast has a thin rubbery horizontal mass around 01:00 o'clock left breast. It is about half a cm by 3 cm long the it is nontender.. Assessment & Plan Assessment & Plan (1) Breast lump on left side at 1 o'clock position: Comment: elongated, rubbery, Code(s): N63.21 - Unspecified lump in the left breast, upper outer quadrant (2) Encounter for counseling and instruction in natural family planning to avoid : Code(s): Z30.02 - Counseling and instruction in natural family planning to avoid (3) Severe eczema: Code(s): L30.9 - Dermatitis, unspecified Plan Alternative plans for follow-up discussed with patient plan made for mammogram and left breast ultrasound if the mass does not go way after her. The patient will self cancel these appointments if it goes away. 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 The patient feels comfortable with this plan. Much of the visit was also spent discussing fertility awareness and some of the drawbacks of the particular kj she is using to boost her control method discussed that there is a longer period of time that potentially can be risky and 1 should air on the side of caution if she does not want to have a baby right now however she was expressing ambivalence about that piece of it offered to send prescription for vitamins to have an consider starting if she is open to fertility. Also discussed skin care and eczema care Orders: Orders MM tomosynthesis diagnostic LT 2 Weeks N63.21 - Unspecified lump in the left breast, upper outer quadrant US breast LT complete 2 Weeks N63.21 - Unspecified lump in the left breast, upper outer quadrant Referrals Breast Surgery Referral N63.21 - Unspecified lump in the left breast, upper outer quadrant Medications: New PNV,calcium [id number]-[id number] acid 27 mg iron- 1 mg ( Vitamins Plus Low Iron) 1 tab PO DAILY 90 tabs 2RF Coding Level of Care Code Est Pt Level 3 (31940) Diagnoses Breast lump on left side at 1 o'clock position N63.21 Encounter for counseling and instruction in natural family planning to avoid Z30.02 Severe eczema L30.9
[2023-11-07 10:37] VITALS: BP 110/60; BMI 37.9
== END 2023-11-07 11:13 | disposition home or self-care (01) ==
LOC: HO.HWSM 10:16
PROVIDERS: PCP Internal Medicine; Visit Provider Advanced Practice Midwife
DX: N63.21 Unspecified lump in the left breast, upper outer quadrant (principal); Z30.02 Counseling and instruction in natural family planning to avoid pregnancy; L30.9 Dermatitis, unspecified
CPT/HCPCS: 99213

== ENCOUNTER → 2023-11-07 10:16 | Outpatient (BNVA) | payer OTHER, SELFPAY | PROVIDERS: PCP Internal Medicine; Visit Provider Advanced Practice Midwife ==

== ENCOUNTER 2023-12-11 14:50 | Outpatient (REF) | payer OTHER, SELFPAY | END 2023-12-11 14:51 | disposition home or self-care (01) | LOC: HO.LNP 14:50 | PROVIDERS: Visit Provider Obstetrics & Gynecology | DX: Z13.89 Encounter for screening for other disorder (principal) ==

== ENCOUNTER 2023-12-11 14:50 | Outpatient (AMB) | payer OTHER, SELFPAY ==
--- NOTE | 2023-12-11 15:14 | MHC.OFFVIS ---
Intake Vital Signs 12/11/23 15:16 Height 5 ft 3 in Weight 214 lb BMI 37.9 BP 120/80 Intake Visit Reasons: Annual Watch Train Inspector Required: No Information Interpreted: non-clinical & clinical Collection Development Librarian: Collection Development Librarian Present (Beatris) Allergies Sulfa (Sulfonamide Antibiotics) Allergy (Intermediate, Verified 12/11/23 15:16) rash sulfamethoxazole [From Bactrim] Allergy (Intermediate, Verified 12/11/23 15:16) Hives trimethoprim [From Bactrim] Allergy (Intermediate, Verified 12/11/23 15:16) Hives nuts Allergy (Intermediate, Uncoded 12/11/23 15:16) itchy throat Is last menstrual period known: Yes Last menstrual period: 11/29/23 Post menopausal: No HPI HPI Comments History of Present Illness Details Presenting for annual exam. No complaints. Last Pap smear was negative in 12/01 The patient saw Dede Clifford CNM recently with left breast lump, left breast ultrasound diagnostic mammogram scheduled with an appointment for a consult with Dr. Olguin regarding her breast lump [facility] Medical History Elevated liver function tests (~08/04/22) Obesity, morbid, BMI 40.0-49.9 Chest pain Hospital discharge follow-up Missed period Encounter for physical examination Constipation by delayed colonic transit Eye abnormality Chest pain COVID-19 Nausea Lower back pain Migraine Anemia Surgical History [place] teeth removed Family History Father Hypertension Mother History of pre-eclampsia Maternal Grandmother Diabetes Paternal Grandmother Hypertension Brother No problems noted. Paternal Aunt Cancer Social History Household Members: Significant Other and Family Both parents involved: Yes Caregiver staying overnight: No Housing: House Are you a primary care transport nurse to a significant other at home: No Do you presently have visiting nurse or other home services: No 75 years or older and lives alone: No Alcohol intake: never Patient Tobacco Use Status: Never used Tobacco e-Cigarette/Vaping Use: Never Used Second Hand Smoke Exposure: No Special mercy needs: No Agree to transfusion: Yes service: No Current occupational status: employed Current occupational exposures/hazards: No Cognitive needs: No Hearing needs: No Vision needs: Yes Female Reproductive History Menstrual Age of Menarche: 9 Duration of menses: 3-5 days Date of last menstrual period: 11/29/23 control method: none Total pregnancies: 1 Full term: 1 Number of Living Children: 1 Date of last pap smear: 11/15/22 (negative) Review of Systems Const All systems reviewed & are unremarkable except as noted in HPI and below Card Reports as per HPI Resp Reports as per HPI GI Reports as per HPI and Reports no additional complaints Reports as per HPI Physical Exam Vital Signs: Last Vital Signs BP 120/80 12/11/23 15:16 BMI result Body Mass Index 37.9 Const General: cooperative, healthy appearing and comfortable Chest Chest palpation & inspection: normal inspection of the chest and normal palpation of entire chest wall Breast/axilla inspection: normal inspection of the breasts and normal inspection of the axillae Breast/axilla palpation: palpation of the breasts abnormal (Right breast within normal, left breast lump ), normal palpation of the axillae and no axillary lymphadenopathy Resp Effort & Inspection: normal respiratory effort Auscultation: clear to auscultation bilaterally Percussion: percussion normal Cardio Palpation: normal PMI Rate: regular rate Rhythm: regular rhythm Heart sounds: no murmurs and no rubs Peripheral pulses: Peripheral pulses 2+ throughout GI Inspection: Yes normal to inspection Palpation (GI): Soft to palpation, nontender, no guarding, not rigid and No hepatosplenomegaly present Percussion: Yes normal to percussion Auscultation: normal bowel sounds Rectal Exam - Female: deferred General: Yes bladder normal to palpation External Female Exam: No lesion Speculum Exam - Vagina: normal appearance of the vagina, normal palpation, normal vaginal discharge and not erythematous Speculum Exam - Cervix: normal appearance of the cervix and normal palpation Bimanual exam- vagina & uterus: normal bimanual exam, normal palpation, uterine size normal, bladder normal to palpation, consistency normal and normal palpation Bimanual Exam- Adnexa, other: normal adnexae, no masses and no tenderness Assessment & Plan Assessment & Plan (1) Well woman exam: Code(s): Z01.419 - Encounter for gynecological examination (general) (routine) without abnormal findings Plan: Pap smear not indicated this. Counseled the patient about the recommended dietary allowance of 1000 mg of Calcium & 600 IU of vitamin D. The patient was instructed to perform monthly self-breast exams , to call for any changes in menstrual patterns and to schedule an annual exam in a year; all questions answered and the patient verbalized understanding. (2) Breast lump: Code(s): N63.0 - Unspecified lump in unspecified breast Plan: Discussed with the patient the finding on Breast exam (breast lump) .The differential diagnosis includes but not limited to lump/cyst/pre cancer/cancer or dense breast tissue. The work up includes breast US and diagnostic mammogram and referred the patient for surgical breast consult which on all scheduled . Orders: Orders CT NG by PCR Today Z01.419 - Encounter for gynecological examination (general) (routine) without abnormal findings Coding Level of Care Code Est Pt Prev Care 18-39y(18256) Diagnoses Well woman exam Z01.419 Breast lump N63.0
[2023-12-11 15:16] VITALS: BP 120/80; BMI 37.9
== END 2023-12-11 15:29 | disposition home or self-care (01) ==
PROVIDERS: Visit Provider Obstetrics & Gynecology
DX: Z01.419 Encounter for gynecological examination (general) (routine) without abnormal findings (principal); N63.0 Unspecified lump in unspecified breast
CPT/HCPCS: 99395

== ENCOUNTER 2023-12-11 15:34 | Outpatient (REF) | payer OTHER, SELFPAY ==
[2023-12-11 18:42] LABS: CT PCR NOT DETECTED (Not Detect.); NG PCR NOT DETECTED (Not Detect.)
== END 2023-12-11 15:35 | disposition home or self-care (01) ==
LOC: HO.LAB 15:34
PROVIDERS: Obstetrics & Gynecology; PCP Internal Medicine; Visit Provider Nurse Practitioner
DX: Z01.419 Encounter for gynecological examination (general) (routine) without abnormal findings (principal); K59.01 Slow transit constipation; Z20.2 Contact with and (suspected) exposure to infections with a predominantly sexual mode of transmission
CPT/HCPCS: 0353U; 36415; 84443

== ENCOUNTER 2023-12-15 13:51 | Outpatient (REF) | payer OTHER, SELFPAY ==
--- NOTE | ~2023-12-15 | US_ITS ---
EXAMINATION: US DIAGNOSTIC ULTRASOUND BREAST, LEFT CLINICAL INFORMATION: 23-year-old female, complaining of palpable abnormality at the 3:00 axis left breast. COMPARISON: None available. TECHNIQUE: Ultrasound of the breast is performed with real-time espinoza scale imaging and color Doppler. Attention was given to the upper outer quadrant left breast, including the area of palpable concern 3:00 axis as indicated by the patient. FINDINGS: There is no focal suspicious finding. There is no solid mass, architectural abnormality, duct ectasia, or edema in the soft tissue planes. There are no cystic abnormalities. Only normal breast tissue is identified. Results are provided to the patient at time of visit by the technologist. US/US breast LT complete IMPRESSION: No findings suspicious for malignancy left breast. No ultrasonographic correlate to the region of palpable concern 3:00 axis. Recommend clinical management. ASSESSMENT: BI-RADS 1: Negative RECOMMENDATION: 1. Patient should be managed based on the clinical impression. Decision to proceed with biopsy should be based on clinical grounds and degree of clinical concern. This patient's information was entered into a reminder system with a target due date for their next mammogram.
== END 2023-12-15 13:52 | disposition home or self-care (01) ==
LOC: HO.MAMMO 13:51
PROVIDERS: PCP Internal Medicine; Visit Provider Advanced Practice Midwife
DX: N63.21 Unspecified lump in the left breast, upper outer quadrant (principal)
CPT/HCPCS: 76641

== ENCOUNTER → 2023-12-15 14:30 | Outpatient (BNV) | payer OTHER, SELFPAY | PROVIDERS: PCP Internal Medicine; Visit Provider Radiology Diagnostic Radiology | DX: N63.25 Unspecified lump in the left breast, overlapping quadrants (principal) | CPT/HCPCS: 76642 ==

== ENCOUNTER 2023-12-25 08:32 | Outpatient (AMB) | payer OTHER, SELFPAY ==
[2023-12-25 09:19] VITALS: BP 116/78; PULSE 99; TEMP 36.6; O2SAT 99; BMI 38.4
--- NOTE | 2023-12-25 09:19 | AM.OFFWIN_ITS ---
Intake Vital Signs 12/25/23 09:19 Height 5 ft 3 in Weight 217 lb BMI 38.4 BP 116/78 Blood Pressure Location Lt brachial Position Sitting Pulse 99 Pulse Source Pulse Oximeter Temp 97.9 F Temp Source Temporal Artery Scan Pulse Oximetry (%) 99 Oxygen Delivery Method Room Air Intake Visit Reasons: EP stomach radiates to back vomiting (lobby) Intake Note: pt is here today for stomach radiates to back vomiting started Monday Patient Tobacco Use Status: Never used Tobacco Allergies Sulfa (Sulfonamide Antibiotics) Allergy (Intermediate, Verified 12/25/23 09:19) rash sulfamethoxazole [From Bactrim] Allergy (Intermediate, Verified 12/25/23 09:19) Hives trimethoprim [From Bactrim] Allergy (Intermediate, Verified 12/25/23 09:19) Hives nuts Allergy (Intermediate, Uncoded 12/11/23 15:16) itchy throat Do you need a note to return to daycare/school/sports/work: Yes HPI HPI Comments History of Present Illness0 Details Patient presents the walk-in today for sick visit Complaining of epigastric/right upper quadrant pain with radiation to the back x2 days Endorses nausea and vomiting 2 days ago. Was able to tolerate p.o. yesterday. Has not eaten anything today. Last bowel movement yesterday, though she does report struggling with constipation Denies chest pain, shortness of breath, palpitations, weakness, dizziness, blood in stool or emesis Denies fever chills, cough, headache LMP 11/30/2023 [facility] Medical History Elevated liver function tests (~08/04/22) Obesity, morbid, BMI 40.0-49.9 Chest pain Hospital discharge follow-up Missed period Encounter for physical examination Constipation by delayed colonic transit Eye abnormality Chest pain COVID-19 Nausea Lower back pain Migraine Anemia Surgical History [place] teeth removed Family History Father Hypertension Mother History of pre-eclampsia Maternal Grandmother Diabetes Paternal Grandmother Hypertension Brother No problems noted. Paternal Aunt Cancer Social History Household Members: Significant Other and Family Both parents involved: Yes Caregiver staying overnight: No Housing: House Are you a primary pet care technician to a significant other at home: No Do you presently have visiting nurse or other home services: No 75 years or older and lives alone: No Alcohol intake: never Patient Tobacco Use Status: Never used Tobacco e-Cigarette/Vaping Use: Never Used Second Hand Smoke Exposure: No Special mercy needs: No Agree to transfusion: Yes service: No Current occupational status: employed Current occupational exposures/hazards: No Cognitive needs: No Hearing needs: No Vision needs: Yes Female Reproductive History Menstrual Age of Menarche: 9 Review of Systems Const All systems reviewed & are unremarkable except as noted in HPI and below Physical Exam Vital Signs: Last Vital Signs Temp 97.9 F 12/25/23 09:19 Pulse 99 12/25/23 09:19 BP 116/78 12/25/23 09:19 Pulse Ox 99 12/25/23 09:19 Oxygen Delivery Method Room Air 12/25/23 09:19 BMI result Body Mass Index 38.4 General: awake, alert, oriented. Answers questions appropriately. Fully engaged in examination. Skin: warm, dry, intact HEENT: Normocephalic. Hearing intact. Cardiac: External chest normal in appearance. Respiratory: No cough, audible wheezing or stridor. Lung sounds clear to auscultation bilaterally Abdomen: without gross distension. Tenderness right upper quadrant. Bowel sounds active X 4 quadrants. Negative guarding. MS: No obvious swelling or deformities. Neurological: Oriented to person, place, time and situation. Thought process intact. No gait abnormalities appreciated. Psychiatric: Appropriate mood and affect. Good judgment and insight. Assessment & Plan Assessment & Plan (1) Right upper quadrant abdominal pain: Code(s): R10.11 - Right upper quadrant pain Plan 23-year-old female presents to walk-in today with epigastric and right upper quadrant abdominal pain radiating to the back x2 days DDX: Cholelithiasis, cholecystitis, pancreatitis, GERD, duodenal ulcer, gastroenteritis Discussed care with patient, she was referred to the emergency room for further workup given potential need for imaging and blood work Expect was called to [facility] [place] emergency department. Coding Level of Care Code Est Pt Level 3 (84422) Diagnoses Right upper quadrant abdominal pain R10.11
== END 2023-12-25 09:41 | disposition home or self-care (01) ==
PROVIDERS: PCP Internal Medicine; Visit Provider Registered Nurse Emergency
DX: R10.11 Right upper quadrant pain (principal)
CPT/HCPCS: 99213

== ENCOUNTER 2023-12-25 10:45 | Emergency (ER) | payer OTHER, SELFPAY ==
--- NOTE | ~2023-12-25 | US_ITS ---
EXAMINATION: US ABDOMEN LIMITED CLINICAL INFORMATION: Epigastric and right upper quadrant pain. COMPARISON: Abdominal ultrasound 11/04/2022. TECHNIQUE: Real-time imaging of the gallbladder. FINDINGS: GALLBLADDER: Normal. The gallbladder is physiologically distended without evidence of stones, sludge, polyps, wall thickening or pericholecystic fluid. COMMON BILE DUCT: Normal in caliber measuring 0.3 cm in diameter. FREE FLUID: None. US/US abdomen limited IMPRESSION: Normal sonographic appearance of the gallbladder.
[2023-12-25 11:29] VITALS: BP 139/85; PULSE 87; RESP 16; TEMP 37; O2SAT 98; BMI 38.4
--- NOTE | 2023-12-25 11:29 | ED.GENADULT ---
HPI - General Adult General Chief complaint: Abdominal Pain Stated complaint: abd pain Time Seen by Provider: 12/25/23 23:57 Source: patient Mode of arrival: ambulatory Limitations: no limitations History of Present Illness HPI narrative: 23-year-old female with past medical history of nonalcoholic steatohepatitis, eczema presents to the ED for epigastric right upper quadrant pain since last Monday. Patient states this past week and had another exacerbation of epigastric right upper quadrant pain with vomiting. Patient denies any chest pain or shortness of breath. Patient denies any fever, chills, or genitourinary symptoms. Patient denies any recent trauma. Related Data Home Medications Medication Instructions Recorded Confirmed epinephrine 0.3 mg/0.3 mL 1 mg IM DAILY 12/11/23 injection, auto-injector cholecalciferol (vitamin D3) 50 50 mcg PO DAILY 12/25/23 mcg (2,000 unit) capsule (Vitamin D3) Previous Rx's Medication Instructions Recorded naproxen 500 mg tablet 500 mg PO BID PRN pain 7 days #14 12/26/23 tabs Allergies Allergy/AdvReac Type Severity Reaction Status Date / Time Sulfa (Sulfonamide Allergy Intermediate rash Verified 12/25/23 11:29 Antibiotics) sulfamethoxazole Allergy Intermediate Hives Verified 12/25/23 11:29 [From Bactrim] trimethoprim [From Bactrim] Allergy Intermediate Hives Verified 12/25/23 11:29 nuts Allergy Intermediate itchy Uncoded 12/11/23 15:16 throat Review of Systems Review of Systems: Epigastric right upper quadrant pain Yes all other systems are reviewed and are negative PMFSH Past Medical History Medical History Elevated liver function tests (~08/04/22) Obesity, morbid, BMI 40.0-49.9 Chest pain Hospital discharge follow-up Missed period Encounter for physical examination Constipation by delayed colonic transit Eye abnormality Chest pain COVID-19 Nausea Lower back pain Migraine Anemia Surgical History [place] teeth removed Family History Family History Father Hypertension Mother History of pre-eclampsia Maternal Grandmother Diabetes Paternal Grandmother Hypertension Brother No problems noted. Paternal Aunt Cancer Social History Social History Household Members: Significant Other and Family Housing: House Are you a primary adult care provider to a significant other at home: No Do you presently have visiting nurse or other home services: No Alcohol intake: never Patient Tobacco Use Status: Never used Tobacco Smoked in Last 30 Days: No e-Cigarette/Vaping Use: Never Used Second Hand Smoke Exposure: No Use of substances other than those prescribed or required for medical reasons: No Special mercy needs: No Agree to transfusion: Yes Advance Directives: No Advance Directives Information Provided: Yes Patient : No service: No Current occupational status: employed Current occupational exposures/hazards: No Cognitive needs: No Hearing needs: No Vision needs: Yes Physical Exam ED Vital Signs: Vital Signs - 24 hr 12/25/23 11:29 12/25/23 18:19 12/25/23 23:01 Temperature 98.6 F 98.4 F 98.2 F Pulse Rate 87 98 94 Respiratory Rate 16 20 16 Blood Pressure 139/85 129/90 H 144/81 H Pulse Oximetry 98 98 99 Oxygen Delivery Method Room Air Room Air Room Air 12/25/23 23:01 Temperature 98.2 F Pulse Rate 94 Respiratory Rate 16 Blood Pressure 144/81 H Pulse Oximetry 99 Oxygen Delivery Method Room Air BMI result Body Mass Index 38.4 Const Orientation/consciousness: oriented to person, oriented to place, oriented to time and patient oriented x3 HENMT Head: Yes normal to inspection, Yes No palpable skull fracture present, Yes normocephalic and Yes atraumatic Eyes General: appearance normal, both eyes and all related structures Neck Neck: Yes normal visual inspection, Yes full ROM, Yes no lymphadenopathy, Yes no meningeal signs, Yes trachea midline, Yes supple, No anterior neck swelling and No tender Chest Chest palpation & inspection: normal inspection of the chest and normal palpation of entire chest wall Resp Effort & Inspection: normal respiratory effort and able to speak in complete sentences Auscultation: clear to auscultation bilaterally Cardio Jugular venous distension: no JVD Heart sounds: S1 normal heart sound present and S2 normal heart sound present GI Inspection: Yes normal to inspection and No abdominal wall ecchymosis Palpation (GI): Soft to palpation, not firm, Tenderness to palpation present (GI) in the epigastrum and in the RUQ; not in the LLQ, not in the RLQ, not in the LUQ, not at McBurney's point, not periumbilically, not suprapubicly, Mcnamara's sign negative, obturator sign negative, psoas sign negative, with no rebound tenderness and Rovsing's sign negative, no guarding and not rigid General: Yes no CVA tenderness Back/Spine/Pelvis Back: no CVA tenderness and No back tenderness Skin General skin exam: no rashes or lesions noted, elasticity normal and turgor normal Neuro General: oriented to person, oriented to place, oriented to time, patient oriented x3, gait normal, tone normal, moves all extremities, Normal light touch and pain sensation, no meningeal signs, no focal motor deficits, CN's II-XI intact bilaterally and normal sensation to monofilament Extrem General: Yes normal to inspection, Yes full ROM and Yes capillary refill normal Course Course Course Narrative: RME performed by Micheline Vergara PA-C. Patient is a 23 year old assigned female at presenting to the emergency department with epigastric pain that is radiating into her back. Detailed physical exam and review of systems are deferred to the registered route associate. Labs and swabs ordered. Patient placed back in the waiting room pending room availability and results. Medications Administered Discontinued Medications Generic Name Dose Route Start Last Admin Trade Name Olivierq PRN Reason Stop Dose Admin Al Hydroxide/Mg Hydroxide 30 ml 12/26/23 00:42 12/26/23 01:29 Magnesium Hydrox/Alum Hydrox 30 Ml Oral.Susp PO 12/26/23 00:43 30 ml ONCE ONE Administration Belladonna Alkaloids/Phenobarbital 10 ml 12/26/23 00:42 12/26/23 01:29 Phenobarb/Hyoscy/Atropine/Scop 10 Ml Elixir PO 12/26/23 00:43 10 ml ONCE ONE Administration Famotidine 20 mg 12/26/23 00:42 12/26/23 01:30 Famotidine 20 Mg Tablet PO 12/26/23 00:43 20 mg ONCE ONE Administration Lidocaine HCl 15 ml 12/26/23 00:42 12/26/23 01:29 Lidocaine Hcl Viscous 2 % 15 Ml Solution MUCOUS MEM 12/26/23 00:43 15 ml ONCE ONE Administration Medical Decision Making Medical Decision Making [facility] Narrative: 23-year-old female with epigastric right upper quadrant pain radiating to the back without any trauma. Labs ordered. Patient not in any distress. Will sent for abdominal ultrasound. 1:55am: Abdomen negative for cholecystitis. UA shows large amounts of blood with trace of bacteria. Ditry catch. Not UTI Patient states presently she is on her heavy menstruation. negative. Exam non-tender and benign on re-evaluation. Patient explained worrisome signs and informed to return to the ED if she has them. Differential Diagnosis Differential Diagnoses: The differential diagnosis associated with the presentation includes (gallstones. pancreatitis, GERD) Admission/Observation Consideration of admission/observation: Escalation of care including admission/observation considered Lab Data MDM Lab Attestation statement: I reviewed the patient's lab results. 12/25/23 12:30 12/25/23 12:30 Labs: Lab Results 12/25/23 12/26/23 Range/Units 12:30 01:34 WBC 6.1 (4.8-10.8) X10*3/uL RBC 5.22 (4.20-5.50) X10*6/uL Hgb 12.1 (12.0-16.0) g/dl Hct 39.1 (37.0-47.0) % MCV 74.9 L (80.0-98.0) fL MCH 23.2 L (27.0-33.0) pg MCHC 30.9 L (31.0-35.0) g/dl RDW 16.6 H (11.0-16.0) % Plt Count 206 (160-400) X10*3/uL MPV 10.3 (9.4-12.3) fL Immature Gran % (Auto) 0.3 (0.0-0.4) % Neut % (Auto) 69.4 (45-73) % Lymph % (Auto) 17.5 L (20-40) % Colbert % (Auto) 11.5 H (2-11) % Eos % (Auto) 0.8 (0-4) % Baso % (Auto) 0.5 (0-2) % Lymph # (Auto) 1.1 L (1.2-4.9) X10*3/uL Colbert # (Auto) 0.7 (0.1-1.2) X10*3/uL Eos # (Auto) 0.1 (0.0-0.4) X10*3/uL Baso # (Auto) 0.0 (0.0-0.2) X10*3/uL Abs Immat Gran (auto) 0.02 (0.00-0.03) X10*3/uL Absolute Neuts (auto) 4.2 (2.0-8.3) x10*3/uL Absolute Nucleated RBC 0.000 (0.0-0.012) X10*3/uL Nucleated RBC % (auto) 0.0 (0.0-0.2) /100WBC Sodium 139 (135-145) mmol/L Potassium 4.1 (3.3-5.1) mmol/L Chloride 107 (96-108) mmol/L Carbon Dioxide 25 (22-29) mmol/L Anion Gap 11 L (12-20) BUN 9 (9-16) mg/dL Creatinine 0.82 (0.5-1.4) mg/dL Estim Creat Clear Calc 117.2 Estimated GFR > 60 Random Glucose 105 (60-115) mg/dL Calcium 9.1 D (8.4-10.2) mg/dL Magnesium 2.0 (1.6-2.6) mg/dL Total Bilirubin 0.2 (0.0-1.0) mg/dL AST 18 (5-31) U/L ALT 17 (0-31) U/L Alkaline Phosphatase 85 (39-117) U/L Total Protein 8.0 (6.5-8.0) g/dL Albumin 4.1 (3.5-5.0) g/dL Lipase 25 (8-78) U/L Beta HCG, Quant < 2 mIU/mL Urine Color Dark Yellow Urine Appearance Cloudy Urine pH 5.0 (5.0-9.0) Ur Specific [place] >= 1.030 H (1.005-1.025) Urine Protein 30 (1+) H (Neg-Trace) mg/dL Urine Glucose (UA) Negative (Negative) mg/dL Urine Ketones 40 (Negative) mg/dL Urine Blood Large (3+) H (Negative) Urine Nitrite Negative (Negative) Ur Leukocyte Esterase Small (1+) H (Negative) Urine RBC >20 H (0-2) /HPF Urine WBC 21-50 H (0-5) /HPF Ur Squamous Epith Cells 3-5 (0-2) /HPF Urine Bacteria Trace (None Seen) Hyaline Casts 3-5 (0-2) /LPF Influenza Type A (PCR) NEGATIVE (Negative) Influenza Type B (PCR) NEGATIVE (Negative) RSV RNA Qual (PCR) NEGATIVE (Negative) SARS-CoV-2 RNA (RT-PCR) NEGATIVE (Negative) Independent Interpretation I performed an independent interpretation of an: Ultrasound Radiology Impression Discussion of test interpretation with radiology: I have reviewed the radiologist's reading. Independent Historian Clinical information obtained from an independent historian. History obtained from or confirmed by: Other (patient) External Record Review External record reviewed: Other (prior visits) Prescription Management I considered prescription management with: Pain Medication Discharge Plan Discharge Clinical Impression: Abdominal pain Patient Disposition: Home, Self-Care Instructions: Abdominal Pain (ED) Additional Instructions: Your blood work came back at baseline. UA Came back negative for . Ultrasound negative for gallstones. Blood work does not indicate pancreatitis. Recommend follow-up with your primary care provider. Return to the ED immediately for worsening abdominal pain, flank pain, fever, chills, nausea, vomiting, diarrhea, dysuria, hematuria, or any other concerning symptoms. Prescriptions: New naproxen 500 mg tablet 500 mg PO BID PRN (Reason: pain) 7 Days Qty: 14 0RF No Action cholecalciferol (vitamin D3) [Vitamin D3] 50 mcg (2,000 unit) capsule 50 mcg PO DAILY epinephrine 0.3 mg/0.3 mL auto-injector 1 mg IM DAILY Stand Alone Forms: Work/School Release Interventions: ED Discharge Assessment Last Done: 12/26/23 02:34 Discharge Date/Time: 12/26/23 02:35 Print Language: Liberian
[2023-12-25 12:34] LABS: MANUAL DIFF FLAG NO
[2023-12-25 12:36] LABS: Basophils Percent Auto 0.5 % (0-2); Eosinophils Absolute Auto 0.1 X10*3/uL (0.0-0.4); Eosinophils Percent Auto 0.8 % (0-4); Hematocrit 39.1 % (37.0-47.0); Hemoglobin 12.1 g/dl (12.0-16.0); Imm Gran Abs Auto 0.02 X10*3/uL (0.00-0.03); Imm Gran Pct Auto 0.3 % (0.0-0.4); Lymphocytes Absolute Auto 1.1 X10*3/uL (1.2-4.9); Lymphocytes Percent Auto 17.5 % (20-40); Mean Corpuscular HGB Conc 30.9 g/dl (31.0-35.0); Mean Corpuscular Hemoglobin 23.2 pg (27.0-33.0); Mean Corpuscular Volume 74.9 fL (80.0-98.0); Mean Platelet Volume 10.3 fL (9.4-12.3); Monocytes Absolute Auto 0.7 X10*3/uL (0.1-1.2); Monocytes Percent Auto 11.5 % (2-11); Neutrophils Absolute Auto 4.2 x10*3/uL (2.0-8.3); Neutrophils Percent Auto 69.4 % (45-73); Platelet Count 206 X10*3/uL (160-400); Red Blood Count 5.22 X10*6/uL (4.20-5.50); Red Cell Distribution Width 16.6 % (11.0-16.0); White Blood Count 6.1 X10*3/uL (4.8-10.8)
[2023-12-25 12:58] LABS: Alanine Aminotransferase 17 U/L (0-31); Albumin Level 4.1 g/dL (3.5-5.0); Alkaline Phosphatase 85 U/L (39-117); Anion Gap 11 (12-20); Aspartate Amino Transferase 18 U/L (5-31); Bilirubin Total 0.2 mg/dL (0.0-1.0); Blood Urea Nitrogen 9 mg/dL (9-16); Calcium 9.1 mg/dL (8.4-10.2); Carbon Dioxide 25 mmol/L (22-29); Chloride 107 mmol/L (96-108); Creatinine Clr Calc Pharmacy 117.2; Estimated Glomerular Filt Rate > 60; Glucose Random 105 mg/dL (60-115); HCG Quantitative < 2 mIU/mL; Potassium 4.1 mmol/L (3.3-5.1); Sodium 139 mmol/L (135-145)
[2023-12-25 13:15] LABS: Influenza A PCR NEGATIVE (Negative); Influenza B PCR NEGATIVE (Negative); Resp Syncy Virus RNA Qual PCR NEGATIVE (Negative); SARS COV2 PCR INHOUSE NEGATIVE (Negative)
[2023-12-25 18:19] VITALS: BP 129/90; PULSE 98; RESP 20; TEMP 36.9; O2SAT 98
[2023-12-25 23:01] VITALS: BP 144/81; PULSE 94; RESP 16; TEMP 36.8; O2SAT 99
[2023-12-26] MEDS: Lidocaine HCl Viscous 2 % 15 ML SOLUTION MUCOUS MEM (01:29)
[2023-12-26] MEDS: PHENobarb/Hyoscy/Atropine/Scop 10 ML ELIXIR PO (01:29)
[2023-12-26] MEDS: Magnesium Hydrox/Alum Hydrox 30 ML ORAL.SUSP PO (01:29)
[2023-12-26] MEDS: Famotidine 20 MG TABLET PO (01:30)
[2023-12-26 01:43] LABS: Appearance Urine Cloudy; Color Urine Dark Yellow; Glucose Urine UA Negative (Negative); Leukocyte Esterase Urine Small (1+) (Negative); Nitrite Urine Negative (Negative); Specific Gravity - Urine >= 1.030 (1.005-1.025); UMIC TRIGGER UACC YES; Urine Blood Large (3+) (Negative); Urine Ketones 40 mg/dL (Negative); Urine Protein 30 (1+) mg/dL (Neg-Trace)
[2023-12-26 01:47] LABS: Bacteria Urine Trace (None Seen); RBC Urine >20 /HPF (0-2); UACC Culture Trigger YES; WBC Urine 21-50 /HPF (0-5)
[2023-12-26 02:14] LABS: Lipase 25 U/L (8-78)
[2023-12-26 02:33] VITALS: BP 136/78; PULSE 90; RESP 16; TEMP 35.1; O2SAT 99
[2023-12-26 02:34] VITALS: BP 139/78; PULSE 90; RESP 16; TEMP 36.8; O2SAT 99
== END 2023-12-26 02:35 | disposition home or self-care (01) ==
PROVIDERS: Physician Assistant; Physician Assistant Medical; Emergency Provider Internal Medicine; PCP Internal Medicine
DX: R10.13 Epigastric pain (principal); R10.11 Right upper quadrant pain; R10.2 Pelvic and perineal pain; Z79.899 Other long term (current) drug therapy; Z11.52 Encounter for screening for COVID-19; Z20.822 Contact with and (suspected) exposure to COVID-19
CPT/HCPCS: 0241U; 76705; 80053; 81001; 83690; 83735; 84702; 85025; 87086; 99284

== ENCOUNTER 2023-12-29 09:27 | Outpatient (REF) | payer OTHER, SELFPAY ==
--- NOTE | ~2023-12-29 | CT_ITS ---
EXAMINATION: CT ABDOMEN AND PELVIS WITH CONTRAST CLINICAL INFORMATION: 23-year-old female with right upper quadrant abdominal pain COMPARISON: Abdominal ultrasound from 12/26/2023 TECHNIQUE: Multidetector volumetric images were obtained from the superior aspect of the liver through the pubic symphysis following administration 85 mL of Omnipaque 350 intravenous contrast. Sagittal and coronal reformatted images were obtained on the technologist's workstation. Oral contrast: No This CT examination was performed using dose optimization techniques as appropriate, variously including the following: *Automated exposure control *Adjustment of mA and/or kV according to patient size (this includes techniques or standardized protocols for targeted exams where dose is matched to indication/reason for exam; i.e. extremities or head) *Use of iterative reconstruction technique DLP: 1253 mGy-cm FINDINGS: LUNG BASES: The visualized lung bases are unremarkable. LIVER, GALLBLADDER, AND BILIARY TREE: The liver is normal in size, shape, and attenuation. No focal hepatic lesion or biliary ductal dilatation is present. The gallbladder is unremarkable with no evidence of radiopaque gallstones, gallbladder wall thickening, or obvious pericholecystic inflammatory changes. PANCREAS: Unremarkable. SPLEEN: Spleen is enlarged measured 13.3 cm. ADRENAL GLANDS: Unremarkable. KIDNEYS AND URETERS: The kidneys are normal in size, shape, and attenuation. No hydronephrosis, hydroureter, or calculi seen. No perinephric stranding. BLADDER: Unremarkable. GASTROINTESTINAL TRACT: The small and large bowel are unremarkable. The appendix is unremarkable. There is large amount of retained feces due to constipation. ABDOMINAL WALL: No significant hernia is appreciated. LYMPH NODES: Normal. VASCULAR: Unremarkable. PELVIC VISCERA: Unremarkable. OSSEOUS STRUCTURES: Unremarkable. CT/CT abdomen pelvis w IV con IMPRESSION: 1. Constipation. 2. Splenomegaly. Fleischner guidelines were followed.
[2023-12-29] MEDS: Barium Sulfate Oral (Mocha) 450 ML ORAL.SUSP PO (12:14)
[2023-12-29] MEDS: Barium Sulfate Oral (Berry) 450 ML ORAL.SUSP PO (12:14)
[2023-12-29] MEDS: iohexoL 350 MG/ML 100 ML INFUS..BTL 85 ML IV (12:15)
== END 2023-12-29 09:28 | disposition home or self-care (01) ==
LOC: HO.CT 09:27
PROVIDERS: PCP Internal Medicine; Visit Provider Surgery
DX: R10.11 Right upper quadrant pain (principal)
CPT/HCPCS: 74177; Q9967

== ENCOUNTER 2024-01-02 16:03 | Outpatient (AMB) | payer OTHER, SELFPAY ==
--- NOTE | 2024-01-02 16:09 | MHC.PC.OV ---
Vital Signs 01/02/24 16:10 Height 5 ft 3 in Weight 214 lb BMI 37.9 BP 124/82 Blood Pressure Location Lt brachial Position S[place] [facility] [place] Epigastric pain Intake Note: Patient [place] [facility] [place]24 Epigastric pain Manager Group Required: No Accompanied by: Self / Same As Patient Allergies Sulfa (Sulfonamide Antibiotics) Allergy (Intermediate, Verified 01/02/24 16:35) rash sulfamethoxazole [From Bactrim] Allergy (Intermediate, Verified 01/02/24 16:35) Hives trimethoprim [From Bactrim] Allergy (Intermediate, Verified 01/02/24 16:35) Hives nuts Allergy (Intermediate, Uncoded 01/02/24 16:35) itchy throat Medication List - Last Reconciled 01/02/24 by Rosalie Echevarria MD cholecalciferol (vitamin D3) (Vitamin D3) 50 mcg PO DAILY epinephrine 1 mg IM DAILY naproxen 500 mg PO BID PRN 7 days Tobacco use date assessed: 01/02/24 Dental Screening Dental Screen Date: 01/02/24 Did you have a dental visit in the last 12 months?: Yes Did you have a dental problem in the last 6 months where you did not have access to dental care?: No Was dental information given to patient?: Patient has dentist HPI HPI Comments History of Present Illness Details This is a 23-year-old female with BERNAL and chronic idiopathic constipation that comes today for hospital discharge follow-up with discharge date 12/25/2023 due to constant right upper quadrant abdominal pain. Labs and ultrasound of the abdomen were done and were with no significant abnormality. Recent CT scan of abdomen and pelvis was done showing constipation and splenomegaly. No fever or lymphadenopathy. Splenomegaly will be checked in 6 months by ultrasound of the abdomen. I will start medication for constipation. She was advised to start low-fat diet for her BERNAL. [facility] Medical History (Updated 01/02/24 @ 18:48 by Rosalie Echevarria MD) Elevated liver function tests (~08/04/22) Obesity, morbid, BMI 40.0-49.9 Chest pain Hospital discharge follow-up Missed period Encounter for physical examination Constipation by delayed colonic transit Eye abnormality Chest pain COVID-19 Nausea Lower back pain Migraine Anemia Surgical History [place] teeth removed Family History Father Hypertension Mother History of pre-eclampsia Maternal Grandmother Diabetes Paternal Grandmother Hypertension Brother No problems noted. Paternal Aunt Cancer Social History Household Members: Significant Other and Family Both parents involved: Yes Caregiver staying overnight: No Housing: House Are you a primary doggy daycare activities director to a significant other at home: No Do you presently have visiting nurse or other home services: No 75 years or older and lives alone: No Alcohol intake: never Patient Tobacco Use Status: Never used Tobacco e-Cigarette/Vaping Use: Never Used Second Hand Smoke Exposure: No Special mercy needs: No Agree to transfusion: Yes service: No Current occupational status: employed Current occupational exposures/hazards: No Cognitive needs: No Hearing needs: No Vision needs: Yes Female Reproductive History Menstrual Age of Menarche: 9 Questionnaire PHQ-9 Over the last 2 weeks, how often have you been bothered by any of the following problems? 1. Little interest or pleasure in doing things: not at all 2. Feeling down, depressed, or hopeless: not at all 3. Trouble falling or staying asleep, or sleeping too much: not at all 4. Feeling tired or having little energy: not at all 5. Poor appetite or overeating: not at all 6. Feeling bad about yourself - or that you are a failure or have let yourself or your family down: not at all 7. Trouble concentrating on things, such as reading the newspaper or watching television: not at all 8. Moving or speaking so slowly that other people could have noticed. Or the opposite - being so fidgety or restless that you have been moving around a lot more than usual: not at all 9. Thoughts that you would be better off or of hurting yourself in some way: not at all Total score: 0 Depression Screening Interpretation: Negative Depression Screening Done: Yes 28569 - PHQ-9 Billing: Yes Source: Developed by Drs. Reji Tejeda, Nathalia Langley, Reginald Akhtar and colleagues, with an educational bryanna from [employer]. Thrive Questionnaire Date Thrive assessed: 01/02/24 I am a: Patient What is your living situation today?: I have a steady place to live Within the past 12 months, did the food you bought not last and you didn't have the money to get more?: Never true Within the past 12 months, did you worry whether your food would run out before you got money to buy more?: Never true Do you have trouble paying for medicines?: No Do you have trouble getting transportation to medical appointments?: No Do you have trouble paying your heating and electricity bill?: No Do you have trouble taking care of your child, family member or friend?: No Do you have trouble with day-to-day activities such as bathing, preparing meals, shopping, managing finances, etc.?: No Are you currently unemployed and looking for a job?: No Are you interested in more education?: No Please select the resources that you would like help with: None Currently or been in a relationship where the following occur: no concerns reported THRIVE Score: 0 AUDIT C Alcohol Use Questionnaire (AUDIT-C) 1. How often do you have a drink containing alcohol?: Never Total Score: 0 Score Reviewed/Action Taken: No DEVORA-7 AMB Questionnaire DEVORA-7 Date DEVORA - 7 assessed: 01/02/24 Feeling nervous, anxious, or on edge: 2 = More than half the days Not being able to stop or control worryin = Not at all Worrying too much about different things: 1 = Several days Trouble relaxin = Not at all Being so restless that it is hard to sit still: 0 = Not at all Becoming easily annoyed or irritable: 0 = Not at all Feeling afraid as if something awful might happen: 0 = Not at all Total DEVORA-7 score (0-4 normal; 5-9 mild; 10-14 moderate; 15-21 severe): 3 Source: Developed by Drs. Reji Tejeda, Nathalia Langley, Reginald Akhtar and colleagues, with an educational bryanna from [employer]. DEVORA-7 Assessment Billing DEVORA-7 Assessment Tool: DEVORA-7 Assessment 70208 Review of Systems Const All systems reviewed & are unremarkable except as noted in HPI and below Eyes Reports no additional complaints, Denies change in vision and Denies other visual disturbances Card Denies chest pain at rest, Denies chest pain with activity, Denies edema, Denies irregular heart rhythm, Denies claudication, Denies dyspnea, Denies dyspnea on exertion, Denies orthopnea, Denies paroxysmal nocturnal dyspnea and Denies slow heart rate Resp Denies cough, Denies dyspnea and Denies dyspnea on exertion GI Denies abdominal pain, Denies change in bowel habits, Denies excessive flatus, Denies nausea and Denies vomiting Denies urinary incontinence, Denies urinary hesitancy and Denies urinary urgency Physical exam (Primary Care) Vital Signs: Last Vital Signs BP 124/82 01/02/24 16:10 BMI result Body Mass Index 37.9 Tobacco/Smoking Status: Tobacco use Status Tobacco use date assessed 01/02/24 01/02/24 16:18 Patient Tobacco Use Status Never used Tobacco 01/02/24 16:13 e-Cigarette/Vaping Use Never Used 01/02/24 16:13 PHQ-9: PHQ-9 Score PHQ-9: Total score 0 01/02/24 16:38 Depression Screening Interpretation: Negative Thrive Assessment: Date of Thrive Assessment Date Thrive assessed 01/02/24 01/02/24 16:18 Currently or been in a relationship where the following occur: no concerns reported Resp Effort & Inspection: normal respiratory effort Auscultation: clear to auscultation bilaterally Cardio Jugular venous distension: no JVD Rate: regular rate Rhythm: regular rhythm Heart sounds: S1 normal heart sound present and S2 normal heart sound present Extrem General: Yes full ROM Assessment and Plan Assessment & Plan (1) Hospital discharge follow-up: Code(s): Z09 - Encounter for follow-up examination after completed treatment for conditions other than malignant neoplasm Plan: Discharge date 12/25/2023 due to right upper quadrant abdominal pain. Ultrasound labs were within normal limits. Abdominal pain has markedly improved. (2) Chronic idiopathic constipation: Code(s): K59.04 - Chronic idiopathic constipation Plan: Start docusate as needed. (3) Splenomegaly: Code(s): R16.1 - Splenomegaly, not elsewhere classified Plan: Repeat ultrasound of the abdomen in 6 months. (4) BERNAL (nonalcoholic steatohepatitis): Code(s): K75.81 - Nonalcoholic steatohepatitis (BERNAL) Plan: Start low-fat diet. Orders: Orders US abdomen comp w elastography 6 Months R16.1 - Splenomegaly, not elsewhere classified Medications: New docusate sodium 100 mg PO DAILY 90 days PRN 90 caps 0RF constipation Coding Level of Care Code TCM Mod MDM <= 14 Days Diagnoses Hospital discharge follow-up Z09 Chronic idiopathic constipation K59.04 Splenomegaly R16.1 BERNAL (nonalcoholic steatohepatitis) K75.81 Additional Codes DEVORA-7 Assessment Billing - DEVORA-7 Assessment Tool: DEVORA-7 Assessment 59195 ([id number]) Time Spent (min) 24
[2024-01-02 16:10] VITALS: BP 124/82; BMI 37.9
== END 2024-01-02 16:44 | disposition home or self-care (01) ==
PROVIDERS: PCP Internal Medicine; Visit Provider Internal Medicine
DX: K59.04 Chronic idiopathic constipation (principal); R16.1 Splenomegaly, not elsewhere classified; K75.81 Nonalcoholic steatohepatitis (NASH)
CPT/HCPCS: 99214

== ENCOUNTER 2024-04-05 10:26 | Outpatient (REF) | payer OTHER, SELFPAY ==
--- NOTE | ~2024-04-05 | US_ITS ---
EXAMINATION: US COMPLETE ABDOMEN WITH LIVER ELASTOGRAPHY CLINICAL INFORMATION: Upper abdominal pain and elevated liver function tests. COMPARISON: None available. TECHNIQUE: Real-time imaging of the abdominal viscera. Noninvasive ultrasound liver fibrosis assessment is performed using [employer]amante ElastPQ point quantification shear wave elastography (2D-SWE) with a C5-2 MHz transducer. Multiple elastography samples are obtained. FINDINGS: PANCREAS: Normal. The visualized pancreatic head and body are normal in appearance. The remainder of the pancreas is obscured from visualization by the overlying bowel gas. ABDOMINAL AORTA: The proximal, middle, and distal aortic segments are normal in caliber. INFERIOR VENA CAVA: Visualized portions are normal. LIVER: Normal. The liver demonstrates normal size, contour and echogenicity. No focal lesion or intrahepatic biliary duct dilatation. The right lobe measures 13.6 cm in length. The left lobe measures 11.8 cm in length. Portal flow is towards the liver (hepatopetal). Shear wave liver elastography median stiffness is 1.79 m/s (reference: normal median stiffness is 1.3 m/s or less). IQR/median stiffness to assess sampling precision is 0.11 (reference: good quality data set is IQR/median stiffness of 0.15 or less). GALLBLADDER: Normal. The gallbladder is physiologically distended without evidence of stones, sludge, polyps, wall thickening or pericholecystic fluid. COMMON BILE DUCT: Normal in caliber measuring 0.2 cm in diameter. RIGHT KIDNEY: Normal. No hydronephrosis. No renal calculi or focal parenchymal lesions. The kidney measures 10.2 cm in maximum dimension. LEFT KIDNEY: Normal. No hydronephrosis. No renal calculi or focal parenchymal lesions. The kidney measures 10.2 cm in maximum dimension. SPLEEN: Normal. The spleen measures 11.4 cm in maximum dimension. FREE FLUID: None. US/US abdomen comp w elastography IMPRESSION: Liver elastography: Measurements are suggestive of compensated advanced chronic liver disease but need further test for confirmation. REFERENCE: Society of Radiologists in Ultrasound Liver Stiffness Thresholds (2020): LIVER STIFFNESS THRESHOLDS: *Liver Stiffness equal or less than 1.3 m/s: High probability of being normal. *Liver Stiffness less than 1.7 m/s: In the absence of other known clinical signs, rules out compensated advanced chronic liver disease. *Liver Stiffness 1.7-2.1 m/s: Suggestive of compensated advanced chronic liver disease but need further test for confirmation. *Liver Stiffness over 2.1 m/s: Rules in compensated advanced chronic liver disease. *Liver Stiffness over 2.4 m/s: Suggestive of clinically significant portal hypertension. QUALITY OF DATA SET: *IQR/Median value equal or less than 0.15 implies a quality data set. *IQR/Median value over 0.15 implies a poor quality data set. SIGNIFICANT CHANGE FROM PRIOR EXAM: Significant change if liver stiffness measurement is 10% or greater from prior exam. OTHER CONSIDERATIONS: The stage of liver fibrosis may be overestimated in the setting of acute hepatitis, liver inflammation, elevated liver function tests, hepatic vascular congestion, obstructive cholestasis, non-fasting state, and infiltrative diseases such as amyloidosis and lymphoma. In some patients with NAFLD, the liver stiffness thresholds for compensated advanced chronic liver disease may be lower. In causes other than viral hepatitis and NAFLD, liver stiffness thresholds are not well established.
== END 2024-04-05 10:27 | disposition home or self-care (01) ==
LOC: HO.US 10:26
PROVIDERS: PCP Internal Medicine; Visit Provider Internal Medicine
DX: R16.1 Splenomegaly, not elsewhere classified (principal)
CPT/HCPCS: 76700; 76981

== ENCOUNTER 2024-07-16 15:19 | Outpatient (AMB) | payer OTHER, SELFPAY ==
[2024-07-16 15:25] VITALS: BP 132/80; BMI 39.3
--- NOTE | 2024-07-16 15:25 | A.OFFPC_ITS ---
Vital Signs 07/16/24 15:25 Height 5 ft 3 in Weight 222 lb BMI 39.3 BP 132/80 Blood Pressure Location Lt brachial Position Sitting Intake Visit Reasons: splenomegaly Multimedia Specialist Required: No Accompanied by: Self / Same As Patient Allergies Sulfa (Sulfonamide Antibiotics) Allergy (Intermediate, Verified 07/16/24 15:37) rash sulfamethoxazole [From Bactrim] Allergy (Intermediate, Verified 07/16/24 15:37) Hives trimethoprim [From Bactrim] Allergy (Intermediate, Verified 07/16/24 15:37) Hives nuts Allergy (Intermediate, Uncoded 07/16/24 15:37) itchy throat Medication List - Last Reconciled 07/16/24 by Rosalie Echevarria MD epinephrine 1 mg IM DAILY Tobacco use date assessed: 07/16/24 Dental Screening Dental Screen Date: 07/16/24 Did you have a dental visit in the last 12 months?: Yes Did you have a dental problem in the last 6 months where you did not have access to dental care?: No Was dental information given to patient?: Patient has dentist HPI HPI Comments History of Present Illness Details This is a 24-year-old female that comes for follow-up on splenomegaly which resolve. She also has chronic idiopathic constipation that has improved with diet. She is obese with a BMI of 39.3 and was advised to do diet and exercise. She is 15 weeks . [facility] Medical History Elevated liver function tests (~08/04/22) Obesity, morbid, BMI 40.0-49.9 Chest pain Hospital discharge follow-up Missed period Encounter for physical examination Constipation by delayed colonic transit Eye abnormality Chest pain COVID-19 Nausea Lower back pain Migraine Anemia Surgical History [place] teeth removed Family History Father Hypertension Mother History of pre-eclampsia Maternal Grandmother Diabetes Paternal Grandmother Hypertension Brother No problems noted. Paternal Aunt Cancer Social History Household Members: Significant Other and Family Both parents involved: Yes Caregiver staying overnight: No Housing: House Are you a primary director of patient care to a significant other at home: No Do you presently have visiting nurse or other home services: No 75 years or older and lives alone: No Alcohol intake: never Patient Tobacco Use Status: Never used Tobacco e-Cigarette/Vaping Use: Never Used Second Hand Smoke Exposure: No Special mercy needs: No Agree to transfusion: Yes service: No Current occupational status: employed Current occupational exposures/hazards: No Cognitive needs: No Hearing needs: No Vision needs: Yes Female Reproductive History Menstrual Age of Menarche: 9 Questionnaire Thrive Questionnaire Date Thrive assessed: 01/02/24 Are you currently unemployed and looking for a job?: No AUDIT C Alcohol Use Questionnaire (AUDIT-C) 3. How often do you have six or more drinks on one occasion?: Never Total Score: 0 DEVORA-7 AMB Questionnaire DEVORA-7 Date DEVORA - 7 assessed: 01/02/24 Source: Developed by Drs. Reji Tejeda, Nathalia Langley, Reginald Akhtar and colleagues, with an educational bryanna from [employer]. Review of Systems Const All systems reviewed & are unremarkable except as noted in HPI and below Card Denies chest pain at rest, Denies chest pain with activity, Denies edema, Denies irregular heart rhythm, Denies claudication, Denies dyspnea, Denies dyspnea on exertion, Denies orthopnea, Denies paroxysmal nocturnal dyspnea and Denies slow heart rate Resp Denies cough, Denies dyspnea and Denies dyspnea on exertion GI Denies abdominal pain, Denies change in bowel habits, Denies excessive flatus, Denies nausea and Denies vomiting Denies urinary incontinence, Denies urinary hesitancy and Denies urinary urgency Musc Denies atrophy, Denies deformity and Denies limited range of motion Skin/Breast Denies bleeding lesions, Denies changing lesions and Denies rash Physical exam (Primary Care) Vital Signs: Last Vital Signs BP 132/80 07/16/24 15:25 BMI result Body Mass Index 39.3 BMI Assessment/Plan discussion: High BMI High, discussed plan: lifestyle, weight reduction, dietary and physical activity Tobacco/Smoking Status: Tobacco use Status Tobacco use date assessed 07/16/24 07/16/24 15:28 Patient Tobacco Use Status Never used Tobacco 07/16/24 15:28 e-Cigarette/Vaping Use Never Used 07/16/24 15:28 Thrive Assessment: Date of Thrive Assessment Date Thrive assessed 01/02/24 07/16/24 15:28 Resp Effort & Inspection: normal respiratory effort Auscultation: clear to auscultation bilaterally Cardio Jugular venous distension: no JVD Rate: regular rate Rhythm: regular rhythm Heart sounds: S1 normal heart sound present and S2 normal heart sound present Extrem General: Yes full ROM Office Procedures Flu Questionnaire Does the patient have a severe egg allergy?: No Has the patient ever had any past reaction to a flu shot?: Yes Immunizations Fluarix Triv [id number] (PF) 45 mcg (15 mcg x 3)/0.5 mL IM syringe Performing Provider: Rosalie Echevarria MD [facility] [place] [facility] Documented (not given) by: RUTH Masters on 07/16/24 15:30 Reason Not Given: Patient Refused Coding Level of Care Code Est Pt Level 3 (02168) Complex EM visit Add On G2211 Diagnoses Chronic idiopathic constipation K59.04 Time Spent (min) 19 Assessment & Plan Assessment & Plan (1) Chronic idiopathic constipation: Code(s): K59.04 - Chronic idiopathic constipation Category: Medical Plan: Continue high-fiber diet. Orders: Orders Influenza [id number] Immunization Today Z23 - Encounter for immunization
== END 2024-07-16 15:48 | disposition home or self-care (01) ==
PROVIDERS: PCP Internal Medicine; Visit Provider Internal Medicine
DX: Z23 Encounter for immunization (principal); K59.04 Chronic idiopathic constipation

== ENCOUNTER → 2024-07-16 15:19 | Outpatient (BNVA) | payer OTHER, SELFPAY | PROVIDERS: PCP Internal Medicine; Visit Provider Internal Medicine | DX: O99.612 Diseases of the digestive system complicating pregnancy, second trimester (principal); K59.04 Chronic idiopathic constipation; Z3A.15 15 weeks gestation of pregnancy | CPT/HCPCS: 90471 ==

== ENCOUNTER 2025-04-09 17:09 | Outpatient (AMB) | payer OTHER, SELFPAY ==
--- NOTE | 2025-04-09 17:24 | MHC.PC.OV ---
Vital Signs 04/09/25 17:25 Height 5 ft 3 in Weight 221 lb BMI 39.1 BP 120/82 Blood Pressure Location Lt brachial Position Sitting Intake Visit Reasons: annual exam Intake Note: Patient here for physical exam Hand Candy Cutter Required: No Accompanied by: Self / Same As Patient Allergies Sulfa (Sulfonamide Antibiotics) Allergy (Intermediate, Verified 04/09/25 17:53) rash sulfamethoxazole (From Bactrim) Allergy (Intermediate, Verified 04/09/25 17:53) Hives trimethoprim (From Bactrim) Allergy (Intermediate, Verified 04/09/25 17:53) Hives nuts Allergy (Intermediate, Uncoded 04/09/25 17:53) itchy throat Medication List - Last Reconciled 04/09/25 by Rosalie Echevarria MD epinephrine 1 mg IM DAILY Tobacco use date assessed: 04/09/25 Dental Screening Dental Screen Date: 04/09/25 Did you have a dental visit in the last 12 months?: Yes Did you have a dental problem in the last 6 months where you did not have access to dental care?: No Was dental information given to patient?: Patient has dentist HPI HPI Comments History of Present Illness Details The patient is a 24-year-old female presenting with a physical exam. She has a history of obesity with a BMI of 39.1 and has been advised to diet and exercise. The patient reports experiencing dizziness that began after her vaginal delivery in January. The dizziness can occur at rest or during exertion. She had a Pap smear in 2022, which was normal. [facility] Medical History (Updated 04/09/25 @ 20:17 by Rosalie Echevarria MD) Elevated liver function tests (~08/04/22) Obesity, morbid, BMI 40.0-49.9 Chest pain Hospital discharge follow-up Missed period Encounter for physical examination Constipation by delayed colonic transit Eye abnormality Chest pain COVID-19 Nausea Lower back pain Migraine Anemia Surgical History [place] teeth removed Family History Father Hypertension Mother History of pre-eclampsia Maternal Grandmother Diabetes Paternal Grandmother Hypertension Brother No problems noted. Paternal Aunt Cancer Social History Household Members: Significant Other and Family Both parents involved: Yes Caregiver staying overnight: No Housing: House Are you a primary customer care team coach to a significant other at home: No Do you presently have visiting nurse or other home services: No 75 years or older and lives alone: No Alcohol intake: never Patient Tobacco Use Status: Never used Tobacco e-Cigarette/Vaping Use: Never Used Second Hand Smoke Exposure: No Special mercy needs: No Agree to transfusion: Yes service: No Current occupational status: employed Current occupational exposures/hazards: No Cognitive needs: No Hearing needs: No Vision needs: Yes Female Reproductive History Menstrual Age of Menarche: 9 Questionnaire PHQ-9 Over the last 2 weeks, how often have you been bothered by any of the following problems? 1. Little interest or pleasure in doing things: not at all 2. Feeling down, depressed, or hopeless: not at all 3. Trouble falling or staying asleep, or sleeping too much: not at all 4. Feeling tired or having little energy: not at all 5. Poor appetite or overeating: not at all 6. Feeling bad about yourself - or that you are a failure or have let yourself or your family down: not at all 7. Trouble concentrating on things, such as reading the newspaper or watching television: not at all 8. Moving or speaking so slowly that other people could have noticed. Or the opposite - being so fidgety or restless that you have been moving around a lot more than usual: not at all 9. Thoughts that you would be better off or of hurting yourself in some way: not at all Total score: 0 Depression Screening Interpretation: Negative Depression Screening Done: Yes 18200 - PHQ-9 Billing: Yes Source: Developed by Drs. Reji Tejeda, Nathalia Langley, Reginald Akhtar and colleagues, with an educational bryanna from [employer] Thrive Questionnaire Date Thrive assessed: 04/07/25 I am a: Patient What is your living situation today?: I have a place to live, but I am worried about losing it in the future Within the past 12 months, did the food you bought not last and you didn't have the money to get more?: Never true Within the past 12 months, did you worry whether your food would run out before you got money to buy more?: Never true Do you have trouble paying for medicines?: No Do you have trouble getting transportation to medical appointments?: No Do you have trouble paying your heating and electricity bill?: No Do you have trouble taking care of your child, family member or friend?: No Do you have trouble with day-to-day activities such as bathing, preparing meals, shopping, managing finances, etc.?: No Are you currently unemployed and looking for a job?: No Are you interested in more education?: No Please select the resources that you would like help with: Housing/Retirement and Childcare Currently or been in a relationship where the following occur: No concerns reported THRIVE Score: 1 AUDIT C Alcohol Use Questionnaire (AUDIT-C) 1. How often do you have a drink containing alcohol?: Never Total Score: 0 DEVORA-7 AMB Questionnaire DEVORA-7 Date DEVORA - 7 assessed: 04/09/25 Feeling nervous, anxious, or on edge: 0 = Not at all Not being able to stop or control worryin = Not at all Worrying too much about different things: 0 = Not at all Trouble relaxin = Not at all Being so restless that it is hard to sit still: 0 = Not at all Becoming easily annoyed or irritable: 0 = Not at all Feeling afraid as if something awful might happen: 0 = Not at all Total DEVORA-7 score (0-4 normal; 5-9 mild; 10-14 moderate; 15-21 severe): 0 Source: Developed by Drs. Reji Tejeda, Nathalia Langley, Reginald Akhtar and colleagues, with an educational bryanna from [employer] DEVORA-7 Assessment Billing DEVORA-7 Assessment Tool: DEVORA-7 Assessment 95688 Review of Systems Const All systems reviewed & are unremarkable except as noted in HPI and below Card Denies chest pain at rest, Denies chest pain with activity, Denies edema, Denies irregular heart rhythm, Denies claudication, Denies dyspnea, Denies dyspnea on exertion, Denies orthopnea, Denies paroxysmal nocturnal dyspnea and Denies slow heart rate Resp Denies cough, Denies dyspnea and Denies dyspnea on exertion GI Denies abdominal pain, Denies change in bowel habits, Denies excessive flatus, Denies nausea and Denies vomiting Physical exam (Primary Care) Vital Signs: Last Vital Signs BP 120/82 04/09/25 17:25 BMI result Body Mass Index 39.1 Tobacco/Smoking Status: Tobacco use Status Tobacco use date assessed 04/09/25 04/09/25 17:29 Patient Tobacco Use Status Never used Tobacco 04/09/25 17:29 e-Cigarette/Vaping Use Never Used 04/09/25 17:29 PHQ-9: PHQ-9 Score PHQ-9: Total score 0 04/09/25 17:57 Depression Screening Interpretation: Negative Thrive Assessment: Date of Thrive Assessment Date Thrive assessed 04/07/25 04/09/25 17:29 Currently or been in a relationship where the following occur: No concerns reported HENMT Head: Yes normal to inspection, Yes normocephalic and Yes atraumatic Ears: external ears normal Resp Effort & Inspection: normal respiratory effort Auscultation: clear to auscultation bilaterally Cardio Jugular venous distension: no JVD Rate: regular rate Rhythm: regular rhythm Heart sounds: S1 normal heart sound present and S2 normal heart sound present GI Inspection: Yes normal to inspection Palpation (GI): Soft to palpation and nontender Auscultation: normal bowel sounds Skin General skin exam: no rashes or lesions noted Neuro General: no focal motor deficits Extrem General: Yes full ROM Psych Appearance: grossly normal Coding Level of Care Code Est Pt Level 3 (06959) Est Pt Prev Care 18-39y(15427) Diagnoses Encounter for physical examination Z00.00 Dizziness R42 Additional Codes DEVORA-7 Assessment Billing - DEVORA-7 Assessment Tool: DEVORA-7 Assessment 75393 ([id number]) PHQ-9 - 03347 - PHQ-9 Billing: Yes ([id number]) Time Spent (min) 35 Assessment & Plan Assessment & Plan (1) Encounter for physical examination: Code(s): Z00.00 - Encounter for general adult medical examination without abnormal findings Category: Medical (2) Dizziness: Code(s): R42 - Dizziness and giddiness Category: Medical Plan The patient was advised to manage her obesity through diet and exercise. Further evaluation of dizziness was not discussed, but monitoring of symptoms is implied. Start meclizine as needed for dizziness. Patient was informed and verbally consented to the use of an ambient scribe for clinic note documentation during this visit.
[2025-04-09 17:25] VITALS: BP 120/82; BMI 39.1
== END 2025-04-09 18:01 | disposition home or self-care (01) ==
LOC: HO.HMCH 17:10
PROVIDERS: PCP Internal Medicine; Visit Provider Internal Medicine
DX: Z00.00 Encounter for general adult medical examination without abnormal findings (principal); R42 Dizziness and giddiness

== ENCOUNTER → 2025-04-09 17:09 | Outpatient (BNVA) | payer OTHER, SELFPAY | PROVIDERS: PCP Internal Medicine; Visit Provider Internal Medicine | DX: Z00.00 Encounter for general adult medical examination without abnormal findings (principal); R42 Dizziness and giddiness | CPT/HCPCS: 96127 ==

== ENCOUNTER 2025-08-16 10:00 | Outpatient (REF) | payer OTHER, SELFPAY ==
[2025-08-16 10:26] LABS: MANUAL DIFF FLAG NO
[2025-08-16 11:39] LABS: Hematocrit 39.7 % (37.0-47.0); Hemoglobin 12.3 g/dl (12.0-16.0); Imm Gran Abs Auto 0.02 X10*3/uL (0.00-0.03); Imm Gran Pct Auto 0.3 % (0.0-0.4); Lymphocytes Absolute Auto 2.0 X10*3/uL (1.2-4.9); Mean Corpuscular HGB Conc 31.0 g/dl (31.0-35.0); Mean Corpuscular Hemoglobin 24.3 pg (27.0-33.0); Mean Corpuscular Volume 78.5 fL (80.0-98.0); NRBC Abs Auto 0.000 X10*3/uL (0.0-0.012); NRBC Pct Auto 0.0 /100WBC (0.0-0.2); Platelet Count 259 X10*3/uL (160-400); Red Blood Count 5.06 X10*6/uL (4.20-5.50); White Blood Count 7.5 X10*3/uL (4.8-10.8)
[2025-08-16 12:18] LABS: Alanine Aminotransferase 22 U/L (0-31); Albumin Level 4.4 g/dL (3.5-5.0); Alkaline Phosphatase 94 U/L (39-117); Anion Gap 14 (12-20); Aspartate Amino Transferase 23 U/L (5-31); Blood Urea Nitrogen 13 mg/dL (9-16); Calcium 9.3 mg/dL (8.4-10.2); Carbon Dioxide 21 mmol/L (22-29); Chloride 110 mmol/L (96-108); Estimated Glomerular Filt Rate > 60; Potassium 4.0 mmol/L (3.3-5.1); Sodium 141 mmol/L (135-145); Total Protein 7.7 g/dL (6.5-8.0)
== END 2025-08-16 10:01 | disposition home or self-care (01) ==
LOC: HO.LAB 10:00
PROVIDERS: PCP Internal Medicine; Visit Provider Internal Medicine
DX: D64.9 Anemia, unspecified (principal); R07.9 Chest pain, unspecified
CPT/HCPCS: 36415; 80053; 85025

== ENCOUNTER 2025-09-02 10:24 | Outpatient (AMB) | payer OTHER, SELFPAY ==
--- NOTE | 2025-09-02 10:30 | MHC.PC.OV ---
Vital Signs 09/02/25 10:31 Height 5 ft 3 in Weight 226 lb 6 oz BMI 40.1 BP 132/72 Blood Pressure Location Lt brachial Position Sitting Pulse 82 Pulse Source Pulse Oximeter Temp 96.6 F L Temp Source Temporal Artery Scan Pulse Oximetry (%) 98 Oxygen Delivery Method Room Air Intake Visit Reasons: RUQ pain Help Desk Assistant Required: No Operating Manager: Not Required per policy Accompanied by: Self / Same As Patient Allergies Sulfa (Sulfonamide Antibiotics) Allergy (Intermediate, Verified 09/02/25 10:43) rash sulfamethoxazole (From Bactrim) Allergy (Intermediate, Verified 09/02/25 10:43) Hives trimethoprim (From Bactrim) Allergy (Intermediate, Verified 09/02/25 10:43) Hives nuts Allergy (Intermediate, Uncoded 09/02/25 10:43) itchy throat Medication List - Last Reconciled 09/02/25 by Rosalie Echevarria MD epinephrine 1 mg IM DAILY PRN 30 days norethindrone (contraceptive) (Ara) 0.35 mg PO DAILY Tobacco use date assessed: 09/02/25 Dental Screening Dental Screen Date: 04/09/25 HPI HPI Comments History of Present Illness Details The patient is a 25 year old individual presenting for evaluation of a right upper quadrant abdominal pain that she has been feeling for the past few months. Not associated with food ingestion, nausea or vomiting. Had an ultrasound last year due to this matter showing fatty liver. Will be referred to Gastroenterology. The patient reports having stopped approximately three months ago and since then has noticed 2 breast mass in the left breast located at 02:00 and 04:00. She still has a milky discharge in the left breast. She is also morbidly obese with a BMI of 40.1 and declines weight management referral. Was advised to do a low-calorie diet and exercise to reach BMI goal less than 30. She also has chronic idiopathic constipation and senna will be sent. [facility] Medical History (Updated 09/02/25 @ 11:57 by Rosalie Echevarria MD) Obesity, morbid, BMI 40.0-49.9 Elevated liver function tests (~08/04/22) Chest pain Hospital discharge follow-up Missed period Encounter for physical examination Constipation by delayed colonic transit Eye abnormality Chest pain COVID-19 Nausea Lower back pain Migraine Anemia Surgical History [place] teeth removed Family History Father Hypertension Mother History of pre-eclampsia Maternal Grandmother Diabetes Paternal Grandmother Hypertension Brother No problems noted. Paternal Aunt Cancer Social History Household Members: Significant Other and Family Both parents involved: Yes Caregiver staying overnight: No Housing: House Are you a primary daytime caregiver to a significant other at home: No Do you presently have visiting nurse or other home services: No 75 years or older and lives alone: No Alcohol intake: never Patient Tobacco Use Status: Never used Tobacco e-Cigarette/Vaping Use: Never Used Second Hand Smoke Exposure: No Special mercy needs: No Agree to transfusion: Yes service: No Current occupational status: employed Current occupation: [employer] Current occupational exposures/hazards: No Cognitive needs: No Hearing needs: No Vision needs: Yes Female Reproductive History Menstrual Age of Menarche: 9 Questionnaire Thrive Questionnaire Date Thrive assessed: 04/07/25 I am a: Patient What is your living situation today?: I have a place to live, but I am worried about losing it in the future Within the past 12 months, did the food you bought not last and you didn't have the money to get more?: Never true Within the past 12 months, did you worry whether your food would run out before you got money to buy more?: Never true Do you have trouble paying for medicines?: No Do you have trouble getting transportation to medical appointments?: No Do you have trouble paying your heating and electricity bill?: No Do you have trouble taking care of your child, family member or friend?: No Do you have trouble with day-to-day activities such as bathing, preparing meals, shopping, managing finances, etc.?: No Are you currently unemployed and looking for a job?: No Are you interested in more education?: No Currently or been in a relationship where the following occur: No concerns reported THRIVE Score: 1 DEVORA-7 AMB Questionnaire DEVORA-7 Date DEVORA - 7 assessed: 04/09/25 Source: Developed by Drs. Reji Tejeda, Nathalia Langley, Reginald Akhtar and colleagues, with an educational bryanna from [employer]. Review of Systems Const All systems reviewed & are unremarkable except as noted in HPI and below Card Denies chest pain at rest, Denies chest pain with activity, Denies edema, Denies irregular heart rhythm, Denies claudication, Denies dyspnea, Denies dyspnea on exertion, Denies orthopnea, Denies paroxysmal nocturnal dyspnea and Denies slow heart rate Resp Denies cough, Denies dyspnea and Denies dyspnea on exertion GI Denies abdominal pain, Denies change in bowel habits, Denies excessive flatus, Denies nausea and Denies vomiting Physical exam (Primary Care) Vital Signs: Last Vital Signs Temp 96.6 F L 09/02/25 10:31 Pulse 82 09/02/25 10:31 BP 132/72 09/02/25 10:31 Pulse Ox 98 09/02/25 10:31 Oxygen Delivery Method Room Air 09/02/25 10:31 BMI result Body Mass Index 40.1 BMI Assessment/Plan discussion: High BMI High, discussed plan: lifestyle, weight reduction, dietary and physical activity Tobacco/Smoking Status: Tobacco use Status Tobacco use date assessed 09/02/25 09/02/25 10:36 Patient Tobacco Use Status Never used Tobacco 09/02/25 10:36 e-Cigarette/Vaping Use Never Used 09/02/25 10:36 Thrive Assessment: Date of Thrive Assessment Date Thrive assessed 04/07/25 09/02/25 10:36 Currently or been in a relationship where the following occur: No concerns reported Resp Effort & Inspection: normal respiratory effort Auscultation: clear to auscultation bilaterally Cardio Jugular venous distension: no JVD Rate: regular rate Rhythm: regular rhythm Heart sounds: S1 normal heart sound present and S2 normal heart sound present Extrem General: Yes full ROM Coding Level of Care Code Complex visit Add On G2211 Diagnoses Right upper quadrant abdominal pain R10.11 Chronic idiopathic constipation K59.04 Obesity, morbid, BMI 40.0-49.9 E66.01 Left breast mass N63.20 Time Spent (min) 20 Assessment & Plan Assessment & Plan (1) Right upper quadrant abdominal pain: Code(s): R10.11 - Right upper quadrant pain Category: Medical (2) Chronic idiopathic constipation: Code(s): K59.04 - Chronic idiopathic constipation Category: Medical (3) Obesity, morbid, BMI 40.0-49.9: Code(s): E66.01 - Morbid (severe) obesity due to excess calories Category: Medical (4) Left breast mass: Comment: at 2 and 4 o'clock Code(s): N63.20 - Unspecified lump in the left breast, unspecified quadrant Category: Medical Plan 1. Right upper quadrant abdominal pain Ultrasound order and a referral to Gastroenterology was done. 2. Morbid obesity Patient was advised a low calorie diet and exercise to reach BMI goal less than 30. 3. Chronic idiopathic constipation Start senna and high-fiber diet. 4. Left breast mass Diagnostic mammogram and ultrasound of the left breast was ordered. Orders: Orders MM diagnostic mammo BI Today N63.20 - Unspecified lump in the left breast, unspecified quadrant US breast LT limited Today N63.20 - Unspecified lump in the left breast, unspecified quadrant Referrals Gastroenterology Referral R10.11 - Right upper quadrant pain Medications: New sennosides (senna) 8.6 mg PO BEDTIME PRN 30 tabs 0RF constipation 30 days K59.04 - Chronic idiopathic constipation
[2025-09-02 10:31] VITALS: BP 132/72; PULSE 82; TEMP 35.9; O2SAT 98; BMI 40.1
== END 2025-09-02 10:56 | disposition home or self-care (01) ==
LOC: HO.HMCH 10:25
PROVIDERS: PCP Internal Medicine; Visit Provider Internal Medicine
DX: R10.11 Right upper quadrant pain (principal); K59.04 Chronic idiopathic constipation; E66.01 Morbid (severe) obesity due to excess calories; N63.20 Unspecified lump in the left breast, unspecified quadrant; Z68.41 Body mass index [BMI] 40.0-44.9, adult

== ENCOUNTER 2025-09-11 10:40 | Outpatient (REF) | payer OTHER, SELFPAY ==
--- NOTE | ~2025-09-11 | US_ITS ---
EXAMINATION: US DIAGNOSTIC ULTRASOUND BREAST, LEFT CLINICAL INFORMATION: 25-year-old female recently stopped breast-feeding [place] palpable left breast lumps at 2 4:00.. COMPARISON: Comparison is made with relevant prior imaging. TECHNIQUE: Ultrasound of the breast is performed with real-time espinoza scale imaging and color Doppler. FINDINGS: Targeted color Doppler ultrasound scanning from 1-5 o'clock in the lateral left breast area of patient's palpable lumps demonstrates an incidental hyperechoic oval circumscribed mass at 2:00 10 cm from nipple measuring 3 x 3 x 4 mm. Otherwise there is normal fibronodular breast tissue scanning from 1-5 o'clock. Results are discussed with the patient at time of visit. US/US breast LT limited IMPRESSION: Hypoechoic oval solid mass at 2:00 10 cm from the nipple. Recommend 6 month follow-up ultrasound for further evaluation of stability or resolution. ASSESSMENT: BI-RADS 3: Probably Benign RECOMMENDATION: Diagnostic ultrasound in 6 months. Electronically signed by: Shanel Esparza DO 09/11/2025 11:47 AM [facility]
== END 2025-09-11 10:41 | disposition home or self-care (01) ==
LOC: HO.MAMMO 10:40
PROVIDERS: PCP Internal Medicine; Visit Provider Internal Medicine
DX: N63.20 Unspecified lump in the left breast, unspecified quadrant (principal)
CPT/HCPCS: 76642

== ENCOUNTER → 2025-09-11 11:00 | Outpatient (BNV) | payer OTHER, SELFPAY | PROVIDERS: PCP Internal Medicine; Visit Provider Internal Medicine | DX: N63.21 Unspecified lump in the left breast, upper outer quadrant (principal) | CPT/HCPCS: 76642 ==